=== PATIENT | male | born 1955 | race Caucasian/White ===

== ENCOUNTER 2021-03-27 13:57 | Emergency (ER) | payer BC ==
[~2021-03-27] VITALS: Ht 193 cm; Wt 117.9 kg
[~2021-03-27 13:57] MED LIST: ALLOPURINOL300 MG PO
[2021-03-27] MEDS ORDERED: VENTOLIN HFA18 GM INH (16:33)
== END 2021-03-27 17:07 | disposition home or self-care (01) ==
LOC: ED 13:57
DX: U07.1 COVID-19 (principal)
CPT/HCPCS: 71045; 80053; 85025; 94640; 99285-25

== ENCOUNTER 2021-03-29 12:05 | Inpatient (IN) | payer BC ==
[~2021-03-29] VITALS: Ht 193 cm; Wt 105.2 kg
[~2021-03-29 12:05] MED LIST changes: +VENTOLIN HFA18 GM INH
--- OUTSIDE RECORDS SUMMARY | 2021-03-29 12:12 | XMS ---
PreManage Notification: TIA DALEY Security Edi Specialist Events No recent Security Events currently on file CRITERIA MET - [facility] - 2 Visits in 30 Days CARE PROVIDERS There are no care providers on record at this time. Joseph has no Care Guidelines for this patient. [facility]12 MO.) [facility] NOTE: Visits indicate total known visits. ED/C VISIT TRACKING (12 MO.) 03/29/2021 12:06 [facility] COMPLAINT: - LOW O2, SHORTNESS OF BREATH 03/27/2021 13:58 [facility] [place] TYPE: Emergency COMPLAINT: - FLU SYMPTOMS INPATIENT VISIT TRACKING (12 MO.) No inpatient visits to display in this time frame [email or web address]
--- NOTE | 2021-03-29 14:30 | NUR ---
REPORT RECEIVED FROM ER NURSE AND PT. CARE RESUMED. PT. ARRIVED VIA STRETCHER AND TRANSFERRED TO BED INDEPENDENTLY. PLACED ON 6L NC WITH BUBBLER. PT. IS ALERT AND ORIENTED. DENIES PAIN. HE REPORTS DIZZINESS/ BEING LIGHTHEADED AT TIMES. 02 SAT IS 97% ON 6L. DISCUSSED SAFETY, POC AND PRONING. PT. LEFT RESTING WITH CALL LIGHT IN REACH.
--- NOTE | 2021-03-29 16:02 | NUR ---
02SAT WAS 98% AND TITRATED DOWN TO 5L NC. PT. AMBULATING WITH SBA TO BATHROOM AND DENIES BEING DIZZY
--- NOTE | 2021-03-29 18:02 | NUR ---
MED REC COMPLETE
--- NOTE | 2021-03-29 18:05 | NUR ---
PT. INSTRUCTED HOW TO USE I.S. AND DEMONSTRATED USE. PT. LEFT RESTING WITH CALL LIGHT IN REACH.
--- NOTE | 2021-03-29 19:10 | NUR ---
SHIFT REPORT RECEIVED FROM DAYSHIFT CONSTANTINO PETERSON IN HALLWAY. pt RESTING IN BED, EYES CLOSED. RR EVEN AND UNLABORED, 5LNC IN PLACE. NO DISTRESS NOTED, CALL LIGHT IN REACH.
--- NOTE | 2021-03-29 21:00 | NUR ---
pt REQUESTING SOMETHING TO HELP HIM SLEEP, DR GALINDO CALLED AND TELEPHONE ORDER READ BACK FOR 3MG PO MELATONIN DAILY AT BEDTIME PRN FOR INSOMNIA. THIS RN TO PLACE ORDERS.
--- NOTE | 2021-03-29 21:04 | NUR ---
IN TO GET VITALS, PROVIDED PT WITH ICE WATER, PT IS ASKING FOR SOME SLEEP AID, RN IS INFORMED AND WILL BE IN TO SEE THE PT SOON, EMPTIED URINAL, NO FURTHER NEEDS AT THIS TIME
--- NOTE | 2021-03-29 21:30 | NUR ---
ASSESSMENT COMPLETE, PRN PAIN AND COUGH MEDICATION GIVEN, SEE EMAR. VSS, pt ON 5LNC, CPOX IN PLACE. LUNG SOUNDS CLEAR/DIMINISHED WITH FINE CRACKLES IN LOWER LOBES. pt USING IS DIRECTED AND AGREES TO CONTINUE TO PRONE AND DEEP BREATH ABLE. NO DISTRESS NOTED, pt APPEARS TIRED OVERALL AND VERBALZES READINESS FOR BED. IV SITE WNL, FLUSHES EASILY. PRN MELATONIN ALSO PROVIDED FOR INSOMNIA, SEE EMAR. pt COMPLIANT WITH CARE, CALL LIGHT IN REACH AND FRESH WATER PROVIDED.
--- NOTE | 2021-03-29 23:41 | NUR ---
CALL LIGHT ANSWERED, pt REPORTS INABILITY TO SLEEP AND VERBALIZES FRUSTRATION REGARDING HOSPITALIZATION. pt IS COMPLIMENTARY TOWARDS STAFF, STATING, "YOU GUYS HAVE BEEN GREAT AND I KNOW YOU'RE DOING EVERYTHING YOU CAN". THERAPEUTIC COMMUNICATION PROVIDED ALONG WITH TEA. pt APPEARS MORE RELAXED AND DENIES ADDITIONAL NEEDS. CALL LIGHT REMAINS IN REACH.
--- NOTE | 2021-03-30 01:45 | NUR ---
CALL LIGHT ANSWERED, BED ALARMING. ISSUE RESOLVED. VSS, CPOX REMAINS IN PLACE. 5LNC WITH BUBBLER IN PLACE. ASSESSMENT COMPLETE, NO NEW CHANGES OR CONCERNS. CALL LIGHT IN REACH, PRN TYLENOL GIVEN FOR 3/10 GENERALIZED PAIN. FRESH WATER PROVIDED. BOARD UPDATED.
--- NOTE | 2021-03-30 03:58 | NUR ---
pt RESTING IN BED WITH EYES CLOSED, RR EVEN AND UNLABORED. NO DISTRESS NOTED. CPOX IN PLACE WITH 5LNC ON. SPO2 LOW 90'S, HR 70'S. CALL LIGHT REMAINS IN REACH.
--- NOTE | 2021-03-30 06:57 | NUR ---
CPOX ALARMING, SPO2 LOW 80'S. pt TITRATED TO 6LNC. pt REPORTS HE RECENTLY GOT OOB TO VOID THEN ATTEMPT TO PULL CURTAN UP. EDUCATION PROVIDED THAT pt IS ON BEDREST WITH EXCEPTION TO VOID. pt VERBALIZES UNDERSTANDING, REMAINS ON 6LNC, SUSTAINING AT 90-91%. CALL LIGHT IN REACH.
--- NOTE | 2021-03-30 07:20 | NUR ---
THIS RN RECEIVED REPORT FROM BRIANNE MEEKS. PT APPEARS TO BE RESTING SITTING UP AT THIS TIME WITH RESPIRATIONS NOTED AND IS ON CPOX.
--- NOTE | 2021-03-30 09:01 | EKG ---
[facility] [address] [place], [place] [address] Signed Sinus rhythm with occasional premature ventricular complexes Rightward axis Borderline ECG No previous ECGs available Confirmed by EBONY GALINDO MD ([id number]) on 03/30/2021 9:01:24 AM Electronically Signed By: EBONY GALINDO MD 03/30/21 0901 PATIENT NAME: TIA DALEY ALAN Electrocardiogram DATE OF : 57 PHYSICIAN: EBONY GALINDO MD REPORT #: [id number] REPORT IS CONFIDENTIAL AND NOT TO BE RELEASED WITHOUT AUTHORIZATION
--- NOTE | 2021-03-30 09:14 | NUR ---
PATIENT SITTING ON EDGE OF BED. BREAKFAST GIVEN. VITALS AND I&O'S CHARTED. FRESH WATER GIVEN. PATIENT REFUSED CHAIR. CALL LIGHT IN REACH. NO FURTHER NEEDS AT THIS TIME.
--- NOTE | 2021-03-30 09:15 | NUR ---
ELENA RN IN PTS ROOM TO GIVE PT HIS MORNIGN MEDS. THIS RN OFFERED PT SOME TYLEONL, PT STATES THAT WOULD BE GOOD FOR HIS GENERALIZED PAIN. PT STATES THAT HE FEELS OKAY JUST NOT SATIFISED THAT HE DID NOT SLEEP WELL LAST NIGHT. THIS RN ENOURAGED PT TO DISCUSS THIS WITH MD DUE TO HAVING ALREADY GOTTENT THE ORDER FOR MELATONIN.
--- NOTE | 2021-03-30 10:20 | NUR ---
THIS RN BACK IN PTS ROOM TO TURN OFF PTS IV PUMP AND SET UP ASSISTED PT TO THE CHAIR. PT TOLERATED WELL AND DOES APPEAR TO HAVE SOME SHORTNESS OF BREATH WHILE MOVING. PT ABLE TO RECOVER QUICKLY AFTER A SLIGHT DESAT TO 86% ON 6L. PT STATES THAT HE IS COMFORTABLE AND NEEDS NOTHING FURTHER AT THIS TIME.
--- NOTE | 2021-03-30 10:30 | NUR ---
this rn attempted to call pts daughter julien, unable to reach her, left a voicemail.
--- NOTE | 2021-03-30 11:45 | NUR ---
this rn called pts daughter to give hre an update. julien is a nurse here at the hospital, this rn attempted to answer all of her questions to the best of her abilty.
--- NOTE | 2021-03-30 13:00 | NUR ---
THIS RN IN PTS ROOM TO CHECK TO ENSURE PT WAS DOING WELL. PT STATES THAT HE IS FEELING BETTER THAN HE DID YESTERDAY. PT HAS NO CONCERNS AT THSI TIME, THIS RN PROVIDED PT WITH BOTTELD WATER, 7UP AND COUGH DROPS THAT HIS DAUGHTER BROUGHT FOR HIM. PT STATES THAT HE NEEDS NOTHING FURTHER.
--- NOTE | 2021-03-30 14:58 | NUR ---
PATIENT IND IN ROOM. PATIENT IN BED AT THIS TIME. SHOWER SUPPLIES SET UP IN SHOWER. NEW GOWN PROVIDED. PATIENT SAID HE WOULD CALL WHEN READY. VITALS AND I&O'S CHARTED. FRESH WATER GIVEN. CALL LIGHT IN REACH. NO FURTHER NEEDS AT THIS TIME.
--- NOTE | 2021-03-30 16:35 | NUR ---
this rn in to check on pt. pt appears to be resting at this time with respirations noted and call light within reach
--- NOTE | 2021-03-30 19:05 | NUR ---
SHIFT REPORT RECEIVED FROM DAYSHIFT CONSTANTINO WHITE IN HALLWAY. pt RESTING QUIETLY IN CHAIR, CPOX IN PLACE. SPO2 95% ON 4LNC, HR 76. NO DISTRESS NOTED, pt APPEARS COMFORTABLE. CALL LIGHT IN REACH.
--- NOTE | 2021-03-30 21:24 | NUR ---
ASSESSMENT COMPLETE, NO SCHEDULED MEDS (SEE EMAR). PRN TYLENOL GIVEN FOR 3/10 GENERALIZED ACHES AND PAINS, SEE EMAR. pt A/OX4, VSS. CPOX IN PLACE. pt ON 4-5LNC. NO DISTRESS NOTED, RR EVEN AND UNLABORED. pt STATES, "OH I FEEL MUCH BETTER THAN I DID LAST NIGHT". FRESH WATER AND JUICE PROVIDED, NO FURTHER NEEDS. CALL LIGHT IN REACH.
--- NOTE | 2021-03-30 22:00 | NUR ---
PER SHIFT REPORT, DAUGHTER JOSE WANG WANTED UPDATE. UPDATE PROVIDED, QUESTIONS ANSWERED. pt OKAY WITH THIS RN GIVING DAUGHTER UPDATE ON pt STATUS.
--- NOTE | 2021-03-31 00:05 | NUR ---
pt RESTING QUIETLY IN BED, EYES CLOSED AND RR EVEN AND UNLABORED. NO DISTRESS NOTED, CPOX IN PLACE. pt TITRATED DOWN TO 4LNC, SPO2 LOW 90'S AND HR UPPER 50'S. CALL LIGHT IN REACH.
--- NOTE | 2021-03-31 02:03 | NUR ---
CALL LIGHT ANSWERED, pt REPORTS BED SWEATY, GEAR MACHINE OPERATOR GENERALLa Nena PERALES IN ROOM TO COLLECT VS AND CHANGE LINENS. IN ROOM TO ASSESS, RT ROSAURA IN ROOM, PER RT, SPO2 IN 80'S WAS TITRATED BY RT ROSAURA. pt ADMITS HE WAS MOVING AROUND ROOM AND ATTEMPTING TO REMOVE WET LINENS. pt EDUCATED ON USE OF CALL LIGHT AND STAFF AVAILABILITY TO ASSIST. pt VERBALIZED UNDERSTANDING, NO DISTRESS NOTED. pt TALKING WITH RT AND INTERACTIVE WITH STAFF. BACK IN BED, WILL CONTINUE TO MONITOR. CALL LIGHT IN REACH.
--- NOTE | 2021-03-31 03:40 | NUR ---
IN TO O2 LETERS AND SPO2 READING FOR RN, NO FURTHER NEEDS AT THIS TIME
--- NOTE | 2021-03-31 05:59 | NUR ---
PRONING EDUCATION ALREADY IN ROOM, pt VERBALIZES UNDERSTANDING. DENIES NEEDS AT THIS TIME, CPOX IN PLACE. SPO2 89-91% ON 6LNC WITH BUBBLER. CALL LIGHT IN REACH.
--- NOTE | 2021-03-31 07:45 | NUR ---
this rn received report from dixon montes. pt sitting up to chair and appears to be resting comfortably with respirations noted, call light within reach and cpox in place.
--- NOTE | 2021-03-31 09:00 | NUR ---
this rn in pts room to give pt morning meds and do morning assessment. pt saturating at 88% on 10L. this rn to bump pt up to 11L and had pt use the IS. pt then desated further to 83% on 11L. this rn had pt get from chair to bed to prone. with movement pt sustained at 85% on 11L. this rn turned pts O2 up to 13L in order to attempt to increase sats. as pt settled into a side lying prone position pts o2 started to resolve to 88% on 13L this rn educated pt about proning and the need to deep breathe and used his diaphram to assit with opening his lungs. pt stated understanding and has call light within reach. this rn notified julien rn, charge nurse about pts change in status. she notified md and respiratory therapy.
--- NOTE | 2021-03-31 09:28 | NUR ---
UPDATED ON PT OXYGEN DEMAND INCREASE TO 13L HIGH FLOW AT THIS TIME. TO ORDER CT TO R/O PE, THEN PLAN TO TRANSFER TO CCU ON VAPOTHERM
--- NOTE | 2021-03-31 10:15 | NUR ---
THIS RN CALLED REPORT TO DAREN MEEKS FOR PT TRANSFER. ALL QUESTIONS ANSWERED TO THE BEST OF THIS RN'S ABILITY
--- NOTE | 2021-03-31 10:20 | NUR ---
THIS RN CALLED PTS DAUGHTER JOSE AND PTS LIFE PARTNER TO UPDATE THEM ON PTS CONDITION AND TRANSFER STATUS. BOTH HAD QUESTIONS AND THEY WERE ANSWERED TO THE BEST OF THIS RN'S ABILITY
--- NOTE | 2021-03-31 10:33 | NUR ---
PATIENT IN BED LAYING IN LEFT SIDE. VITALS AND I&O'S CHARTED. CALL LIGHT IN REACH. NO FURTHER NEEDS AT THIS TIME,.
--- NOTE | 2021-03-31 11:00 | NUR ---
PT APPEARS TO BE SIDE PRONING ON HIS LEFT SIDE AT THIS TIME. PT ON 13L HI-GA AND O2 SATS APPEAR TO BE 94-95%
--- NOTE | 2021-03-31 12:15 | NUR ---
THIS RN DOWN WITH PT AND SIENA FROM RT TO CT. PT TOELRATED WELL AND WAS PLACED ON NON-REBREATHER. PT SATS WERE ADEQUATE AND STAYED ABOVE 90% ON 12-15L OF O2.
--- NOTE | 2021-03-31 12:45 | NUR ---
PT TRANSFERRED TO ROOM 130 IN CCU AT THIS TIME VIA BED, RN ACCOMPANIED WITH SIENA FROM RT.
--- NOTE | 2021-03-31 13:00 | NUR ---
PATIENT ARRIVED TRANSFERED FROM THE MEDICAL UNIT AFTER HAVING A CT CHEST COMPLETED. PATIENT RESTING IN BED AT THIS TIME. BEDDING WAS CHANGED WHILE CT WAS COMPLETED. RESPIRATORY THERAPY AND CHRISTOPHER RN AT PATIENTS BEDSIDE. REPORT RECIEVED FROM CHRISTOPHER MEEKS. PATIENT CURRENTLY ON 15L NON-REBREATHER WITH SPO2 92%. SIENA RT WILL SET UP VAPOTHERM PER MD BOO ORDER. THIS RN WILL BE AT THE BEDSIDE TO ADMIT PATIENT IN AND ORIENT TO HIS NEW ROOM. WILL CONTTINUE TO CLOSELY MONITOR.
--- NOTE | 2021-03-31 15:11 | NUR ---
RESPIRATORY THERAPY IN TO PLACE PATIENT ONTO VAPOTHERM. THIS RN WILL BE IN AFTER TO ASSIST PATIENT WITH PRONING. WILL CONTINUE TO CLOSELY MONITOR.
--- NOTE | 2021-03-31 16:30 | NUR ---
THIS RN IN TO ASSIST PATIENT ONTO HIS BELLY TO LAY PRONE. PATIENT IS VERY WILLING TO TRY ANYTHING TO GET BETTER. PATIENT BECAME TEARFUL WHEN TALKING WITH STAFF AND STATED "I DONT WANT TO ". REASSURED PATIENT THE STAFF ARE HERE AND ARE GOING TO DO ALL BE CAN TO HELP HIM GET BETTER. PATIENT VERY THANKFUL FOR WHAT STAFF ARE DOING FOR HIM. PATIENT WILLING TO TRY AND LAY PRONE UNTIL HIS DINENR COMES. EDUCATED PATIENT HOW TO CALL AND MOVE IF HE NEEDS TO REPOSITION SOONER. CALL LIGHT IN REACH. WILL CONTINUE TO CLOSELY MONTIOR.
--- NOTE | 2021-03-31 18:45 | NUR ---
THIS RN IN WITH PATIENT TO ASSIST UP TO THE CHAIR SO HE COULD EAT DINNER. PATIENT TOELRATED WELL. PATIENT VISITING WITH THIS RN. URINAL EMPTIED. PATIENT OKAYED STAFF TO UPDATE PATIENTS DAUGHTER JOSE. PATIENT WAS ABLE TO PRONE FOR APPROX 1 HOUR AND THEN LAID ON HIS SIDE FOR 1 HOUR PRIOR TO DINNER. PATIENTS VITALS STABLE. PATIENT ON 30L AND 80%. WILL CONTINUE TO CLOSELY MONITOR.
--- NOTE | 2021-03-31 19:39 | NUR ---
Report recieved care of patient assumed at this time. PT up in chair spo2 = 91% on vapotherm at this time.
--- NOTE | 2021-03-31 20:12 | NUR ---
assessment completed. pt sitting up in chair. spo2= 91 percent on vapotherm. discussed plan of care. pt states he feels better when proning and will attempt to prone as much as possible tonight. Pt shaving and doing pm cares in recliner at this time. call light within reach. will continue to monitor.
--- NOTE | 2021-03-31 21:06 | NUR ---
Pt up from recliner and into prone position in bed. pillows at chest and hips. pt states he will try to remain in this position as long as tolerated. spo2= 98% at this time.
--- NOTE | 2021-03-31 21:43 | NUR ---
PT NOW LAYING ON LEFT SIDE. CALL LIGHT WITHIN REACH. WILL CONTINUE TO MONITOR.
--- NOTE | 2021-03-31 23:24 | NUR ---
pt up in chair spo2 = 85 percent on vapotherm 30l/80% FIO2. pt states he feels short of breath. prn breathing tx given at this time and vapotherm settings increased to 30l/ 90%fio2. this rn remains at bedside.
--- NOTE | 2021-03-31 23:38 | NUR ---
PT STATES HE FEELS BETTER AFTER BREATHING TREATMENT, VAPOTHERM TURNED BACK DOWN TO 30L/80% FIO2. SPO2 =95% AT THIS TIME. FINE CRACKLES NOTED IN BILATERAL LUNG BASES. PT REMAINS UP IN RECLINER. CALL LIGHT WITHIN REACH. WILL CONTINUE TO MONITOR.
--- NOTE | 2021-04-01 02:45 | NUR ---
rn eyal in room with patient to assist with repostioning in chair. spo2 = 96 percent at this time. breathing even and unlabored. call light within reach. will continue to monitor.
--- NOTE | 2021-04-01 04:23 | NUR ---
assessment completed and blood drawn and sent to lab. pt states he slept for a few hours. Pt sitting up in bed drinking coffee and watching the news. plan to turn onto side in the next hours. SPO2 94-96 percent on vapotherm. call light within reach. no further needs at this time.
--- NOTE | 2021-04-01 06:26 | NUR ---
PT SATURATIONS DROPPED INTO THE MID 80S. PT NOW TURNED ON TO LEFT SIDE, SPO2 = 100 PERCENT ON 30L /80%. CALL LIGHT WITHIN REACH. WILL CONTINUE TO MONITOR.
--- NOTE | 2021-04-01 07:25 | NUR ---
REPORT RECEIVED FROM NIGHTSHIFT RN. WILL CONTINUE PLAN OF CARE.
--- NOTE | 2021-04-01 08:30 | NUR ---
THIS RN IN TO ASSESS PT, PT LAYING IN BED ALERT AND ORIENTED X4. PT ON THE VAPOTHERM AT 30LPM 80% FIO2. PT STATES HE IS CURRENTLY HAVING GENERAL BODY ACHES 4/10 AND SOME COUGHING. PRN TYLENOL AND TESSALON PERLES ADMINISTERED ALONG WITH SCHEDULED MEDICATION (SEE MAR). IV MEDICATION NOW INFUSING ORDERED. PT ASSESSED AT THIS TIME AND VITALS TAKEN. FINE CRACKLES NOTED IN BASES BILATERALLY. PT ENCOURAGED AND ABLE TO USE I.S 3X AT THIS TIME WHILE SITTING UP IN BED. PT NOW EATING HIS BREAKFAST. PT REPORTS NO FURTHER NEEDS AT THIS TIME WHEN ASKED. CALL LIGHT IN REACH, BED IN LOWEST POSITION, IVF INFUSING, VAPOTHERM LEFT AT CURRENT SETTINGS, SPO2 AT 94%, WILL CONTINUE PLAN OF CARE.
--- NOTE | 2021-04-01 09:45 | NUR ---
RESPONDED TO PT CALL LIGHT PT STATED HE NEEDED TO HAVE A BM. THIS RN IN TO ASSIST PT GET ONTO THE BEDSIDE COMMODE. PT REQUIRED ASSISTANCE ONLY WITH WIRE MANAGEMENT AND WAS ABLE TO GET ONTO THE BEDSIDE COMMODE. VAPOTHERM FIO2 INC TO 100% WHILE PT WAS ACTIVE, SPO2 MAINTAINING IN UPPER 80% LOWER 90%. PT DENIED LIGHTHEADEDNESS BUT DID STATE HE FELT HE HAD LABORED BREATHING DURING THIS TIME. PT ABLE TO VOID AND HAVE A BM AND GOT BACK INTO BED IN THE PRONE POSITION. PT FIO2 DECREASED BACK TO 80% AND THEN 70% HIS SPO2 WAS IN THE 98-99% RANGE. DR. GALINDO THEN IN TO ASSESS PT AND UPDATE ON POC. PT TURNED DOWN TO 60% FIO2 ON THE VAPOTHERM PER MD ORDERS. PT DENIES ANY PAIN AT THIS TIME WHEN ASKED. PT NOW PRONING IN BED, VAPOTHERM AT 30LPM, FIO2 AT 60%, SPO2 MAINTAINING AT 96%. PT REPORTS NO FURTHER NEEDS AT THIS TIME WHEN ASKED, WILL CONTINUE PLAN OF CARE. CALL LIGHT IN REACH, BED IN LOWEST POSITION.
--- NOTE | 2021-04-01 10:45 | NUR ---
RESPONDED TO PT CALL LIGHT. PT STATED HE WANTED TO REPOSITION OVER TO THE LEFT SIDE. PT ASSISTED WITH REMOVING EXTRA PILLOWS, PT NOW LAYING ON HIS LEFT SIDE. PT STILL ON VAPOTHERM AT PREVIOUS SETTINGS AT 30LPM FIO2 AT 60%, SPO2 AT 94%. PT REPORTS NO FURTHER NEEDS AT THIS TIME WHEN ASKED, WILL CONTINUE PLAN OF CARE. CALL LIGHT IN REACH, BED IN LOWEST POSITION.
--- NOTE | 2021-04-01 12:42 | NUR ---
LUNCH ARRIVED, DELIVERED TO PT BY THIS RN. PT UP TO CHAIR. DENIES SHORTNESS OF BREATH. O2 SATURATIONS 87-89% ON VAPOTHERM SETTINGS OF 60% FIO2 AT 30LPM. FIO2 INCREASED TO 70% AND O2 SATURATIONS CLIMB TO 90-91%. PT HAS VOIDED 450ML CLEAR YELLOW URINE INTO URINAL. PT EATING LUNCH UP TO CHAIR. VITAL SIGNS STABLE. NO ADDITIONAL REQUESTS OR COMPLAINTS. CALL LIGHT WITHIN REACH.
--- NOTE | 2021-04-01 13:34 | NUR ---
PTS FAMILY MEMBER, CLAUDE, CALLED FOR UPDATED. UPDATED ON PTS OXYGEN SATURATION LEVEL AND ACTIVITIES OF THE DAY. MESSAGE PASSED TO PTS PRIMARY NURSE TO CALL CLAUDE WELL WITH ADDITIONAL UPDATES.
--- NOTE | 2021-04-01 13:35 | NUR ---
THIS RN IN TO ASSESS PT. PT STANDING UP AT THE SIDE OF THE BED VOIDING INTO URINAL AT THIS TIME. PT AWAKE AND ORIENTED AT THIS TIME ON VAPOTHERM AT 30LPM 70% FIO2. PT STATED HE WANTED TO PRONE WHEN HE GOT BACK INTO THE BED. PT ASSISTED IN FINDING A COMFORTABLE POSITION WHEN PRONING. PT NOW LAYING IN BED PRONING, SPO2 AT 98-99%. FIO2 ON VAPOTHERM DECREASED TO 50% AT THIS TIME. PT SP02 MAINTAINING AT 94-96% WHILE PRONED. PT REPORTS NO FURTHER NEEDS WHEN ASKED, WATER CUPS REFILLED AT THIS TIME. CALL LIGHT IN REACH, BED IN LOWEST POSITION, WILL CONTINUE PLAN OF CARE.
--- NOTE | 2021-04-01 16:40 | NUR ---
THIS RN IN TO ASSESS PT. PT GETTING BACK INTO BED AND HAD JUST FINISHED VOIDING INTO THE URINAL. PT NOW LAYING BACK IN BED ON HIS LEFT SIDE, VAPOTHERM ON AT 30LPM, 50% FIO2. SPO2 NOTED TO BE AT 98-100%, FIO2 DECREASED TO 40%. PT ASSESSED AT THIS TIME AND VITALS TAKEN. PT REPORTS HE STILL HAS SOME SHORTNESS OF BREATH WITH ACTIVITY BUT DENIES LIGHTHEADEDNESS. PT REPORTS NO FURTHER NEEDS WHEN ASKED AT THIS TIME, WILL CONTINUE PLAN OF CARE. CALL LIGHT IN REACH, BED IN LOWEST POSITION.
--- NOTE | 2021-04-01 17:21 | NUR ---
DINNER BROUGHT TO PT AT THIS TIME. PT AWAKE AND ALERT LAYING IN BED ON THE VAPOTHERM AT 30LPM 40% FIO2. PT REPOSITIONED UP TO A SITTING POSITION IN BED TO EAT DINNER. FIO2 ON VAPOTHERM INCREASED TO 50% AT THIS TIME TO MAINTAIN SATURATIONS ABOVE 90% WHILE EATING. PT REPORTS NO FURTHER NEEDS AT THIS TIME AND IS NOW EATING DINNER, SPO2 AT 95%, WILL CONTINUE PLAN OF CARE. CALL LIGHT IN REACH, BED IN LOWEST POSITION.
--- NOTE | 2021-04-01 19:12 | NUR ---
Update from Rn. Pt remains on vapotherm. Will fu with family tomorrow.
--- NOTE | 2021-04-01 19:22 | NUR ---
PATIENT UP TO CHAIR BY HIMSELF ON VAPOTHERM AT 30 L AND 50%. SP02 STAYING 88%, THEREFORE INCREASED TO 60%. PT'S PERSONAL BELONGINGS BROUGHT CLOSER TO HIM.
--- NOTE | 2021-04-01 19:32 | NUR ---
Report recieved, care of mei assumed at this time. pt currently n vapotherm and up in chair. spo2 =90%. will closely monitor.
--- NOTE | 2021-04-01 20:24 | NUR ---
IN ROOM FOR ASSESSMENT. PT UP IN CHAIR. FINE CRACKLES NOTED UP TO THE MIDDLE OF LUNGS POSTERIORLY. PLAN OF CARE ESTABLISHED AT THIS TIME. PT NOW IN BED, IN LEFT SIDE LAYING POSITION. VAPOTHERM AT 30L/ 60% FIO2. CALL LIGHT WITHIN REACH. DENIES FURTHER NEEDS AT THIS TIME.
--- NOTE | 2021-04-01 22:00 | NUR ---
PT UP TO CHAIR AT THIS TIME. SPO2 = 93%, TOLERATED EXERTION WELL. CALL LIGHT WITHIN REACH. NO FURTHER NEEDS AT THIS TIME.
--- NOTE | 2021-04-01 23:30 | NUR ---
PT ASLEEP IN RECLINCER. SPO2= 95% ON VAPOTHERM. CALL LIGHT WITHIN REACH. NO ASSESSED NEEDS AT THIS TIME.
--- NOTE | 2021-04-02 01:21 | NUR ---
patient slept through assessment. awoke to voice. spo2 =95%. pt remains asleep in chair. vapotherm in place. call light within reach. no assessed needs at this time.
--- NOTE | 2021-04-02 01:42 | NUR ---
Pt moved to bed at this time. took vapotherm off for a break. spo2 = 78 on room air. recovered after a minute of resting on vapotherm. spo2 =91% on 30L /50% FIO2. pt now laying on right side. call light within reach. will continue to monitor.
--- NOTE | 2021-04-02 04:24 | NUR ---
assessment completed. pt awake sitting up in bed. used urinal and repositioned in bed. given prn medication for cough (see emar). blood collected and sent to lab, well tolerated by patient. spo2 = 92% on vapotherm 30l/ 50% Call light within reach. denies further needs at this time.
--- NOTE | 2021-04-02 05:45 | NUR ---
pt now in prone positon. SPO2 = 93 % on vapotherm. will continue to monitor.
--- NOTE | 2021-04-02 08:10 | NUR ---
BREAKFAST ARRIVED. DELIVERED TO PT. PT UP TO CHAIR. RT TO BEDSIDE AND WEANS PT TO 45% FIO2 AT 35LPM. PT TOLERATING DECREASED FIO2 WITH OXYGEN SATURATIONS ABOVE 90%. PT REMAINS UP TO CHAIR, EATING BREAKFAST. NO ADDITIONAL REQUESTS OR COMPLAINTS. CALL LIGHT WITHIN REACH. PTS PRIMARY RN UPDATED.
--- NOTE | 2021-04-02 10:10 | NUR ---
PATIENT IN PRONE POSITION AT THIS TIME. HELPED HIM GET COMFORTABLE. RT IN ROOM AND SWITCHED PT TO HIGH FLOW NASAL CANNULA AT 12 L. SP02 IS CURRENTLY 98-99%. PT GIVEN PRN MOTRIN. CALL LIGHT WITHIN REACH.
--- NOTE | 2021-04-02 11:23 | NUR ---
PATIENT CONTINUES TO REST PRONED AT THIS TIME. SP02 HAS BEEN STAYING IN THE UPPER 90s ON 12L HIGH FLOW.
--- NOTE | 2021-04-02 11:39 | NUR ---
PATIENT USES CALL LIGHT AND STATES HE WANTS TO ORDER LUNCH. PATIENT PRONED FOR AN HOUR, LAID ON RIGHT SIDE FOR A HALF HOUR, AN LEFT SIDE. LUNCH ORDERED. PT ON [address] CASTILLO IN ROOM AT THIS TIME DISCUSSING WITH PLAN OF CARE.
--- NOTE | 2021-04-02 17:52 | NUR ---
Spoke with Esteban. He lives in a [place] style home in [place] with out steps with his girlfriend. He is a forklift truck mechanic. He does not use any DME. Discussed needs and he denies and states his girlfriend raul assist him. Discussed possibility of need for 02 on dc and he would like [place] if 02 is required. He denies other needs and plans on dc to home on discharge.
--- NOTE | 2021-04-02 18:46 | NUR ---
PATIENT TRANSFERRED TO MED/SURG. PT REMAINS ON 10 L HIGH FLOW. ALL BELONGINGS TAKEN WITH PATIENT. PATIENT TRANSFERRED TO 113 IN BED. PT IN [employer] AND EXCITED ABOUT THE DOWNGRADE TO THE MEDICAL FLOOR, HE FEELS THIS IS A STEP IN THE RIGHT DIRECTION.
--- NOTE | 2021-04-02 18:58 | NUR ---
PT ARRIVED TO THE FLOOR VIA BED. PT STATES THAT HE NEEDS NOTHING AT THIS TIME AND IS DOING WELL.
--- NOTE | 2021-04-02 19:05 | NUR ---
RECEIVED REPORT, TALKED TO PT FROM DOORWAY AND HE DENIES NEEDS AT THIS TIME. CALL LIGHT IS CLOSE.
--- NOTE | 2021-04-02 20:21 | NUR ---
IN ROOM TO ASSESS PT. HE DENIES NEED FOR TYLENOL NOW BUT WOULD LIKE SOME FOR BACK/GENERALIZED 4/10 PAIN BEFORE GOING TO BED. PT DENIES SOB, HE DOES HAVE AN OCCASIONAL COUGH. PT CPOX IN PLACE AND PT IS AT 91% ON HIGH FLOW NC. PROVIDED FRESH ICEWATER TO PT AND HE DENIES FURTHER NEEDS AT THIS TIME. CALL LIGHT IS CLOSE.
--- NOTE | 2021-04-02 21:19 | NUR ---
IN ROOM TO ADMINISTER TYLENOL FOR GENERAL/BACK PAIN. BLANKET PLACED OVER CHAIR FOR PT AND EMPTIED URINAL/BSC. PT HAD MED BM SOFT. PT DENIES FURTHER NEEDS AT THIS TIME. CALL LIGHT IS CLOSE.
--- NOTE | 2021-04-02 23:03 | NUR ---
ASKED RT ROSAURA FOR A EXTENDED HIGH FLOW LINE. HE SET EXTENSION UP AND PT'S O2 SAT IS AT 95% AT THIS TIME ON CPOX. PT IS RESTING WITH EYES CLOSED, RR IS EVEN AND NONLABORED. CALL LIGHT IS CLOSE.
--- NOTE | 2021-04-03 01:15 | NUR ---
CPOX WAS BEEPING, PT WAS JUST USING THE URINAL AND THE PROBE WAS NOT READING WELL. PT REQUESTS COFFEE AND DENIES FURTHER NEEDS. CALL LIGHT IS CLOSE, WILL MAKE COFFEE AND RETURN.
--- NOTE | 2021-04-03 01:30 | NUR ---
BLACK COFFEE PROVIDED.
--- NOTE | 2021-04-03 01:56 | NUR ---
IN ROOM TO ASSESS PT. HE DENIES PAIN AND SOB, PT STATES EVEN WHEN HE IS UP HAS HAS NO SOB. HE STATES BLOWING HIS NOSE HELPED DECREASED THIS SOB THAT HE HAD LAST NIGHT. PT DENIES NEEDS AT THIS TIME. CALL LIGHT IS CLOSE.
--- NOTE | 2021-04-03 04:30 | NUR ---
PT IS AWAKE IN BED, COFFEE PROVIDED. HE DENIES FURTHER NEEDS. CALL LIGHT IS CLOSE.
--- NOTE | 2021-04-03 06:25 | NUR ---
JERICA RUSTIC FENCE BUILDER NOTIFIED THIS RN THAT PT GOT UP TO BATHROOM AND THEN THE CHAIR AND O2 SAT DROPPED TO 79%, IT EVENTUALLY CAME BACK UP TO 85% BY THE TIME THIS RN ENTERED THE ROOM THEN TO 90%. PT DROPPED AGAIN AFTER COUGHING TO MID 80"S. INCREASED O2 TO 12LNC AND HIS IS MAINTAINING 90% AT THIS TIME. ADMINISTERED TYLENOL FOR A 5/10 HEADACHE. PT DENIES FURTHER NEEDS AT THIS TIME CALL LIGHT IS CLOSE.
--- NOTE | 2021-04-03 07:30 | NUR ---
REPORT RECEIVED FROM MICKEY MEEKS. PT UP TO CHAIR. PT REPORTS HE "FEELS LIKE CRAP." PT REPORTS IT WAS A "BAD NIGHT" AND STATES HE IS HAVING A HARD TIME WITH FEELINGS OF MAILASE. OXGYEN SATURATIONS 88-90% ON 12L O2 BY NC. PT REPORTS 2/10 HEADACHE THAT IS "GETTING BETTER." PT REPORTS HE WAS ABLE TO PRONE "A LITTLE BIT" LAST NIGHT BUT "HAD TROUBLE WITH THAT BED." PT STATES HE WOULD LIKE TO EAT BREAKFAST AND THEN GET BACK TO BED TO PRONE. PT DENIES ADDITIONAL REQUESTS OR COMPLAINTS. CALL SUNDEEP VIRGEN.
--- NOTE | 2021-04-03 08:21 | NUR ---
BROUGHT PATIENT IN HIS BREAKFAST. WHITE BOARD UPDATED. PATIENT SITTING UP IN CHAIR. HE STATED HE DOES NOT NEED ANYTHING ELSE AT THIS TIME. CALL LIGHT IN REACH.
--- NOTE | 2021-04-03 09:01 | NUR ---
PATIENT UP TO BATHROOM TO VOID, TOLERATED ACTIVITY WELL, ATE 100% OF BREAKFAST. PATIENT BACK TO BED AND PRONING ON STOMACH.
--- NOTE | 2021-04-03 09:14 | NUR ---
MORNING ASSESSMENT AND MEDICATION DUE. THIS RN TO ROOM. PT UP IN ROOM WITH EVA RN, TO RESTROOM. VOIDS 375ML YELLOW URINE. PT BACK TO BED WITH STAND BY ASSIST. PT CONTINUES TO REPORTS MALIASE WITH 4/10 BODY ACHES. PT STATES HE IS GENERALLY "NOT FEELING GOOD." PT STATES HE HAD A ROUGH NIGHT WITH HARDLY ANY SLEEP. PT DENIES NAUSEA. IVs ASSESSED, WNL. FLUSHED PER PROTCOL. ALCOHOL CAPS APPLIED. NO S/S OF PHELBITIS NOTED. O2 SATURATIONS 86-88% OIN 11L WITH ACTIVITY. PT BACK TO BED WITH STAND BY ASSIST. ASSESSMENT DONE. LUNG SOUNDS CLEAR. PT ASSISTED INTO PRONING POSITION AND OXYGEN SATURATIONS CLIMB TO 96% ON 11L O2 BY NC. PT REPORTS OCCATIONAL DRY COUGH. DYSPNEA ON EXERTION NOTED. PT REPORTS HE IS "TOO TIRED" TO USE I.S. AT THIS TIME. PT REMAINS IN PRONING POSITION, SUPPORTED WITH PILLOWS. PT DENIES ADDITIONAL REQUESTS OR COMPLAINTS STATING "I JUST REALLY WANT TO REST." NAP SIGN PLACED ON PTS DOOR. BED RAILS UP. CALL LIGHT WITHIN REACH.
--- NOTE | 2021-04-03 10:00 | NUR ---
No change in plan for dc.
--- NOTE | 2021-04-03 10:07 | NUR ---
CALL RETURNED TO PTS DAUGHTER, JOSE. JOSE UPDATED, JOSE STATES HER QUESITONS HAVE BEEN ANSWERED.
--- NOTE | 2021-04-03 10:20 | NUR ---
THIS RN TO ROOM TO CHECK ON PT. PT RESTING ON RIGHT SIDE WITH EYES CLOSED. RESPRIATIONS EVEN AND UNALBORED. O2 SATURATTION 96% ON 11L O2 BY NC. PT ALLOWED TO REST UNDESTURBED. BED RAILS UP. CALL LIGHT WITHIN REACH.
--- NOTE | 2021-04-03 11:43 | NUR ---
THIS RN TO ROOM TO CHECK ON PT. PT FEELING DISCOURAGED ABOUT TIME IT IS TAKING TO RECOVER. 20MINUTE DISCUSSION HELD WITH PT REGARDING RECOVERY PROCESS, OXYGEN USE, PLAN OF CARE, AND EXPECTATIONS. PT VERBALIZES UNDERSTANDING AND STATES HE FEELS "A LOT BETTER" WITH ANSWERS TO HIS QUESTIONS. PT REMAINS UP TO CHAIR. PT STATES THE DOCTOR WAS HERE AND SUGGESTED TIME UP TO CHAIR. OXYGEN SATURATION 88-91% ON 11L O2 BY NC. PT DEMONSTRATES USE OF I.S. REACHING 2000ML X4. IC EWATER REFILLED. CALL LIGHT WTHIN REACH. PT DENIES ADDITIONAL REQUESTS OR COMPLAINTS.
--- NOTE | 2021-04-03 12:45 | NUR ---
PATIENT UP TO SHOWER, THIS BILINGUAL SPEECH THERAPIST AND MO MELVIN IN ROOM TO MONITOR. PATIENT DID WELL IN SHOWER BY SELF. LINENS CHANGED, PATINET BACK TO CHAIR, WARM BLANKET AND ICE WATER PROVIDED. SIDE TABLE TIDIED. CALL LIGHT AND PERSONAL ITEMS CLOSE BY, NO OTHER NEEDS AT THIS TIME
--- NOTE | 2021-04-03 12:50 | NUR ---
PT FINISHED WITH LUNCH. ABLE TO EAT FULL ENSURE MILKSHAKE WITH ADDED ICE CREAM. PT REPORTS APPITTIE IS IMPROVING. PT REPORTS HE IS READY FOR A SHOWER. OXYGEN INCREASED TO 16L O2 BY HIGH FLOW NC FOR SHOWER/ACTVITY PT IS 88-91% ON 11L O2 AT REST. STAND BY ASSIST UP TO SHOWER, IV LINE COVERED. LUNA AND CANDI, PHP MYSQL WEB DEVELOPER'S IN ROOM WITH PT FOR STAND BY ASSIST WITH SHOWER. LINENS CHANGED. PHP MYSQL WEB DEVELOPER'S REMAIN AT BEDSIDE. PT DEMONSTRATES USE OF CALL LIGHT. NO ADDITIONAL REQUESTS OR COMPLAINTS.
--- NOTE | 2021-04-03 13:44 | NUR ---
AFTERNOON ASSESSMENT DUE. PT FINISHED WITH SHOWER. PT UP TO CHAIR. OXYGEN SATURATIONS 92% ON 16L AFTER ACTIVITY. PT REPORTS INDEPENDANT I.S. X5 AND SATTES HE IS REACHIGN 2000ML. PT REPORTS 3/10 BODY ACHES AND WHEN ASKED IF HE NEEDS PAIN MEDICATION STATES "I WOULDN'T TURN IT DOWN." SEE MAR FOR MEDICATION GIVEN. IV SITES REMAIN WNL, NO S/S OF PHELBITIS NOTED. PT ALERT AND ORIENTED, NEURO CHECK WNL. LUNG SOUNDS CLEAR BUT FOR SMALL AMOUNT OF FINE CRACKELS IN LLL. PT REPORTS HIS BREATHING DURING SHOWERING "FELT OKAY." STAND BY ASSIST BACK TO BED AND INTO PRONE POSITION. OXGYEN SATURATIONS CLIMB TO 92-95% ON 11L O2 BY NC WITH PRONING. PT REPORST FEELING "BETTER ALREADY." NO ADDITIONAL REQUESTS OR COMPLAINTS. CALL LIGHT WITHIN REACH. BED RAILS UP.
--- NOTE | 2021-04-03 15:20 | NUR ---
THIS RN TO ROOM TO CHECK ON PT. PT RESTING ON LEFT SIDE WITH EYES CLOSED. O2 SATURATIONS 90% ON 11L O2 BY NC. RESPRIATIONS EVEN AND UNALBORED. PT ALLOWED TO REST. BED RAILS UP. CALL LIGHT WITHIN REACH.
--- NOTE | 2021-04-03 16:35 | NUR ---
THIS RN TO ROOM TO CHECK ON PT. PT CONTINUES RESTING ON LEFT SIDE WITH EYES CLOSED. RESPIRATIONS EVEN AND UNALBORED. O2 SATURATION 94% ON 11L O2 BY NC. BED RAILS UP. CALL LIGHT WITHIN REACH. PT ALLOWED TO REST.
--- NOTE | 2021-04-03 16:49 | NUR ---
PT HERE FOR COVID RELATED PNEUMONIA. STAND BY ASSIST UP IN ROOM TO CHAIR AND FOR SHOWER THIS SHIFT. PT TOELRATING REGULAR DIET WITH GOOD APPITITE. PT REMAINS ON 11L O2 BY HIGH FLOW NASAL CANULA, INCREASED TO 16 DURING HIGH ACTIVITY LEVELS TO 16L. PT TOLERATING WITH OXYGEN SATURATIONS 88-95%. PT REPORT BODY ACHES THIS SHIFT, PRN PAIN MEDICATIONS GIVEN. PT DENIES NASUEA. I.S. USE IMPROVED, PT NOW REACHING 2000ML. PT PARTICIPATING IN PRONING PROTOCOLS. CONTINIOUS PULSE OX REMAINS IN PLACE. PT VOIDING QUANTITY SUFFICIENT. PT USES CALL LIGHT APPROPRIATLY.
--- NOTE | 2021-04-03 17:45 | NUR ---
THIS RN TO ROOM TO CHECK ON PT. PT SITTING UP IN BED TALKING WITH FAMILY ON PHONE. PT REPORTS "I FEEL SO MUCH BETTER NOW." O2 AT 88-91% ON 11L O2 BY NC. STAND BY ASSIST UP TO CHAIR FOR DINNER. WATER REFILLED. PT DENIES PAIN AND NAUSEA AND REPORTS GOOD APPITITE. PT REPORTS HE HAD A SMALL BLOODY NOSE WHILE PRONING. 2CM CIRCUMFRENTIAL SPOT OF BLOOD NOTED ON PTS BLANKET. ADDITIONAL STERIL WATER ADDED TO HIGH FLOW NASAL CANULA HUMIDIFICATION. PT REMAINS UP TO CHAIR, OXYGEN SATURATION 87-90% WHILE EATING ON 11L O2 BY MD. PT DENIES ADDITIONAL REQUESTS OR COMPLAINTS. PT TALKING TO FAMILY ON FACE TIME. ABLE TO CARRY ON CONVERSATION WITH OUT STOPING TO CATCH HIS BREATH. CALL LIGHT WITHIN REACH.
--- NOTE | 2021-04-03 18:40 | NUR ---
THIS RN TO ROOM TO CHECK ON PT. PT REMAINS UP TO CHAIR. O2 SATURATIONS 90% ON 11L O2 BY NC. PT REPORTS DINNER "WAS REALLY GOOD." PT DENIES ADDITIONAL REQUESTS OR COMPLAINTS. CALL LIGHT WITHIN REACH.
--- NOTE | 2021-04-03 19:00 | NUR ---
RECEIVED REPORT, PT IS SITTING IN CHAIR. CPOX READS 91% ON 11LNC. HE DENIES NEEDS AT THIS TIME. CALL LIGHT IS CLOSE.
--- NOTE | 2021-04-03 19:08 | NUR ---
REPORT GIVEN TO CONSTANTINO AREVALO, WHO IS ASSUMING CARE OF PT.
--- NOTE | 2021-04-03 21:20 | NUR ---
PT IS RESTING WITH EYES CLOSED, RR IS EVEN AND NONLABORED. CALL LIGHT IS CLOSE. CPOX WNL.
--- NOTE | 2021-04-03 23:00 | NUR ---
IN TO GET VITALS FOR RN, FRESH ICE WATER PROVIDED, PT HAS NOT VOIDED AT THIS TIME, PT UP TO THE CHAIR, NO FURTHER NEEDS
--- NOTE | 2021-04-03 23:25 | NUR ---
IN ROOM TO ASSESS PT AND ADMINISTER TYLENOL FOR 4/10 GENERAL ACHES AND PAINS. PT DENIES SOB. HIS O2 ON CPOX HAS BEEN IN THE LOW 90'S WHILE SLEEPING ON HIS SIDE. NOW THAT HE IS AWAKE IN CHAIR HIS O2 SAT STARTED TO DROP TO LOW 83% AFTER GETTING UP TO CHAIR. WITH SOME DEEP BREATHS PT'S O2 RECOVERED TO 90% ON 12L NC. PT DENIES FURTHER NEEDS AT THIS TIME. CALL LIGHT IS CLOSE.
--- NOTE | 2021-04-04 01:22 | NUR ---
PT IS RESTING WITH EYES CLOSED, RR IS EVEN AND NONLABORED. CALL LIGHT IS CLOSE. PT IS LAYING ON R SIDE CPOX READS 93% ON 12L NC.
--- NOTE | 2021-04-04 02:25 | NUR ---
PT IS AWAKE IN THE CHAIR. HE DENIES NEEDS AT THIS TIME, CPOX READS 92%. CALL LIGHT IS CLOSE.
--- NOTE | 2021-04-04 04:36 | NUR ---
PT IS RESTING WITH EYES CLOSED, RR IS EVEN AND NONLABORED. CALL LIGHT IS CLOSE.
--- NOTE | 2021-04-04 06:50 | NUR ---
IN ROOM TO GET VS AND I&O'S. PT DENIES PAIN AND SOB AT THIS TIME. HE IS SITTING UP IN BED AND CPOX READ 87% INCREASED O2 TO 13LNC AND HIS O2 INCREASED TO 89%. TALKED W PT ABOUT DCING THE IV IN HIS HAND SINCE IT HAS BEEN IN SINCE ADMISSION. PT STATES HE WOULD RATHER TAKE AC IV OUT IT IS BOTHERSOME. ADVISED PT THAT WE WILL LEAVE IT FOR NOW AND CHECK WITH DR. PT DENIES FURTHER NEEDS AT THIS TIME. CALL LIGHT IS CLOSE.
--- NOTE | 2021-04-04 07:13 | NUR ---
REPORT RECEIVED FROM CONSTANTINO AREVALO. PT UP TO CHAIR. PULSE OX ALARMING, O2 SATURATION 78% ON 12L O2 BY NC. PT STATES HE WAS JUST UP TO USE THE URINAL. THIS RN INTO ROOM. O2 SATURATION CLIMBS TO 82% WITH 5 MINUTES TIME. PT INCREASED TO 16L O2 BY NC WITH OXYGEN SATURATIONS CLIMBING TO 84-85%. PT ENCORAUGED TO SPEND SOME TIME PRONING. PT AGREES. STAND BY ASSIST INTO PRONE POSITION. OXYGN SATURATION CLIMBS TO 91% ON 16L O2 BY NC. PT WEANED BACK TO 12L O2 BY NC WITH OXYGEN SATURATIONS 89-91%. THIS RN IN ROOM TO MONITOR OXYGENATION X10 MINUTES. REMAINS STABLE. PT REMAINS IN PRONE POSITION. BED RAILS UP. CALL LIGHT WITHIN REACH.
--- NOTE | 2021-04-04 07:54 | NUR ---
THIS RN TO ROOM TO CHECK ON PT. PT REMAINS IN PRONE POSITION. OXYGEN SATURATION 93% ON 12L O2 BY NC. PT STATES HE IS OK WITH REMAINING IN PRONE POSITION UNTIL BREAKFAST ARRIVES. NO ADDITIONAL REQUESTS OR COMPLAINTS AT THIS TIME. CALL LIGHT WITHIN REACH.
--- NOTE | 2021-04-04 08:50 | NUR ---
PATIENT TRANSFERRED TO CHAIR TO EAT BREAKFAST. O2 LEVELS DROPPED TO 79 BUT NOW IS BACK TO 85. NURSE ASHTYN IS IN ROOM NOW. PATIENT DOES NOT NEED ANYTHING ELSE AT THIS TIME. CALL LIGHT IN REACH.
--- NOTE | 2021-04-04 08:52 | NUR ---
MORNING ASSESSMENT AND MEDICATION DUE. PT UP TO CHAIR FOR BREAKFAST. OXGYEN SATURATION 84-86% ON 12L O2 BY NC. PT REPORTS 4/10 BODY ACHES (SEE MAR FOR MEDICATION GIVEN). PT DENIES NAUSEA. PT ALERT AND OREINTED, STEADY ON FEET WITH STAND BY ASSIST. LUNG SOUNDS CLEAR TO DEMINISHED. OXYGEN INCREASED TO 16L O2 BY NC WHILE PT IS UP TO CHAIR. OXYGEN SATURATIONS CLIMB TO 89%. PT DEMONSTRATES USE OF I.S. REACHING 2000ML X5. PT REPORTS OCCATIONAL DRY COUGH. PT REPORTS SENSE OF TASTE HAS RETURNED. SENSE OF SMELL "COMES AND GOES" AND APPTITIE IS IMPROVING BUT INCONSISTANT. PT PLACED ON TELEMETRY PULSE OXEMETRY FOR MONITORING AT NURSES STATION. PT REMAINS UP TO CHAIR. EATING BREAKFAST SLOWLY. NO ADDITIONAL REQUESTS OR COMPLAINTS. CALL LIGHT WITHIN REACH.
--- NOTE | 2021-04-04 10:45 | NUR ---
THIS RN TO ROOM TO CHECK ON PT. PT UP TO RESTROOM. O2 SATURTIONS AT 90-93% ON 14L O2 BY NC. PT WEANED TO 12L O2 BY NC. TOLERATING WITH OXGYEN SATRUATIONS %. PT HAS "VERY LARGE" BOWEL MOVEMENT. PT VOIDS CLEAR YELLOW CONCENTRATED URINE IN URINAL. PT BACK TO CHAIR. I.S. USE DEMONSTRATED, PT REACHES 2000ML X4. LOW RESERVE NOTED. PT TAKES 5 MINUTES TO RECOVER ONCE MOVING BACK TO CHAIR, O2 SATARUTIONS DROP TO 84% ON 12L O2 BY NC BUT RECOVER TO 89-91% AFTER 5 MINUTES REST. PT DENIES ADDITIONAL REQUESTS OR COMPLAINTS. CALL LIGHT WITHIN REACH.
--- NOTE | 2021-04-04 11:25 | NUR ---
THIS RN TO ROOM WITH MD FOR ROUNDS. PT VERBALIZES UNDERSTANDING OF PLAN OF CARE AND STATES HIS QUESTIONS HAVE BEEN ANSWERED. PT REPORTS 4/10 BODY ACHES. SEE MAR FOR MEDICATION GIVEN. PT REPORTS FEELING MUCH BETTER SINCE HIS LARGE BOWEL MOVEMENT. LUNCH ORDER PLACED. STAND BY ASSIST BACK TO BED AND INTO PRONING POSITION. PT WEANED TO 8L O2 BY NC WHILE PRONING. O2 SATURATIONS MAINTAINING ABOVE 90%. NO ADDIITONAL REQUESTS OR COMPLAINTS. CALL LIGHT WITHIN REACH.
--- NOTE | 2021-04-04 11:56 | NUR ---
PT CONTINUES IN PRONE POSITION. TOLERATING 8 O2 BY NC WITH OXYGEN SATURATIONS FROM 96-99%. MD UPDATED. CALL LIGHT WITHIN REACH BED RAILS UP.
--- NOTE | 2021-04-04 12:32 | NUR ---
LUNCH ARRIVED. THIS RN TO ROOM TO CHECK ON PT. PT SITTING IN BED WITH HEAD OF BED ELEVATED TO 40 DEGREES, EATING LUNCH. PT DENIES SHORTNESS OF BREATH AND STATES HE HAD A "GOOD NAP." OXYGEN SATURATIONS 89-91% ON 8L O2 BY NC. NO ADDITIONAL REQUESTS OR COMPLAINTS. CALL LIGHT WITHIN REACH.
--- NOTE | 2021-04-04 13:00 | NUR ---
PT FINISHED WITH LUNCH. REMAINS 90-92% ON 8L O2 BY NC. PTS DAUGHTER CAMRYN UPDATED. JOSE STATES HER QUESTIONS HAVE BEEN ANSWERED. NO ADDITIONAL REQUESTS OR COMPLAINTS. CALL LIGHT WITHIN REACH.
--- NOTE | 2021-04-04 13:33 | NUR ---
AFTERNOON ASSESSMENT DUE. PT FINISHED VISITING WITH FAMILY. PT DENIES NAUSEA. REPORTS 3/10 PAIN AND REQUESTS TYELNOL STATING "I'LL JUST REST BETTER IF I HAVE IT." SEE MAR FOR MEDICATION GIVEN. STAND BY ASSIST UP TO RESTROOM. PT MAINTAINS OXYGEN SATURATION 89-91% ON 8 LITERS EVEN WHILE UP. PT VOIDS 200ML CLEAR YELLOW URINE. PT INDEPENDANT BACK TO BED. ASSESSMENT DONE: PT ALERT AND ORIENTED AND CONTINUES ANSWERING QUESTIONS APPROPRIATLY. PT STEADY ON FEET. DENIES SHORTNESS OF BREATH AND STATES HE IS FEELING "A LOT BETTER TODAY." LUNG SOUNDS CLEAR. OCCATIONAL DRY COUGH NOTED. PT DEMONSTRATES USE OF I.S. REACHING 2000ML X4. PT REPORTS "I WAS JUST WORKING ON THAT." HUMIDIFIED HIGH FLOW NASAL CANULA REMAINS IN PLACE AT 8L WITH OXYGEN SATRUATIONS POSITIONAL, WITH ACTIVITY=88-91%, SITTING 90-91%, PRONING=96-98%. STAND BY ASSIST INTO PRONING POSITION. OXGYEN WEANED TO 6L O2 BY NC WHILE PRONING WITH SATURATIONS REMAINING ABOVE 92%. ICE WATER REFILLED. VITAL SIGNS STABLE. CALL LIGHT WITHIN REACH. BED RAILS UP.
--- NOTE | 2021-04-04 14:35 | NUR ---
THIS RN TO ROOM TO CHECK ON PT. PT RESTING ON RIGHT SIDE WITH EYES CLOSED. RESPIRTIONS EVEN AND UNLABORED. OXYGEN SATURATION 94-95% ON 6L O2 BY NC. BED RAILS UP. CALL LIGHT WITHIN REACH. PT ALLOWED TO REST.
--- NOTE | 2021-04-04 15:33 | NUR ---
No change in plan for dc.
--- NOTE | 2021-04-04 15:41 | NUR ---
THIS RN TO ROOM TO CHECK ON PT. PT CONTINUES RESTING ON RIGHT SIDE. RR = 20. OXYGEN SATURATION 94-96% ON 6L O2 BY NC. NO ADDITIONAL NEEDS AT THIS TIME. CALL LIGHT WIHTIN REACH. BED RAILS UP.
--- NOTE | 2021-04-04 17:26 | NUR ---
THIS RN TO ROOM TO CHECK ON PT. PT REMAINS UP TO CHAIR, TOELRATING 6L O2 BY NC WITH OXYGEN SATURATIONS ABOVE 90% EVEN WHILE UP. DINNER DELIVERED. PT DENIES NAUSEA. PT REPORTS BODY ACHES AT 2/10, DENIES NEED FOR MEDICATION AT THIS TIME STATING "MAYBE BEFORE BED." OXGYEN WEANED TO 5L O2 BY NC WITH STATURAIONS MAINTAING ABOVE 90%. ICE WATER REFILLED. NO ADDITIONAL REQUESTS OR COMPLAINTS. PTS DAUGHTER JOSE, UPDATED, AND STATES HER QUESTIONS HAVE BEEN ANSWERED. CALL LIGHT WITHIN REACH.
--- NOTE | 2021-04-04 17:36 | NUR ---
PT HERE FOR COVID RELATED PNEUMONIA. PT INDEPENDANT IN ROOM, STEADY ON FEET. UP TO CHAIR AND PARTICIPATING IN PRONING PROTOCOLS THIS SHIFT. PT TOLERATING REGULAR DIET WITH GOOD APPITITIE. ENSURE MILKSHAKE PROVIDED FOR LUNCH. PT WEANED TO 5L O2 BY NC THIS SHIFT WITH OXYGEN SATURATIONS DEPENDANT ON POSITION: ACTIVITY 89-90%, SITTING 90-91%, PRONING 95-96%. LUNG SOUNDS CLEAR. I.S. USE ENSURED, PT NOW REACHING 2250ML. PT CHEERFUL AND HOPEFUL THIS SHIFT. FAMILY UPDATED. PRN PAIN MEDICATION GIVEN FOR BODY ACHES. PT DENIES NAUSEA. PT VOIDING QUANTITY SUFFICIENT. PT USES CALL LIGHT APPROPRIATLY.
--- NOTE | 2021-04-04 18:16 | NUR ---
THIS RN TO ROOM TO CHECK ON PT. PT REMAINS UP TO CHAIR. OXGYEN SATURATIONS 90-94% ON 5L O2 BY NC. PT REPORTS 2/10 BODY ACHES AND CONTINUES TO DENY NEED FOR MEDICAITON AT THIS TIME. NO ADDITIONAL REQUESTS OR COMPALINTS. CALL LIGHT WITHIN REACH.
--- NOTE | 2021-04-04 19:15 | NUR ---
RECEIVED REPORT, PT IS AWAKE IN THE CHAIR AT THIS TIME. HE DENIES NEEDS, CALL LIGHT IS CLOSE.
--- NOTE | 2021-04-04 22:05 | NUR ---
IN ROOM TO ASSESS PT. EMPTIED URNIAL. PT DENIES SOB AND PAIN AT THIS TIME. HE IS MOTIVATED TO KEEP O2 NEEDS LOW SO HE CAN GO HOME. ASSISTED PT TO PRONE ON STOMACH HE IS ON 5LNC AND NOW AT 96% O2 SAT. PT STATES HE IS DOINE WELL WITH THE I.S. PT DENIES FURTHER NEEDS AT THIS TIME. CALL LIGHT IS CLOSE.
--- NOTE | 2021-04-05 01:19 | NUR ---
PT IS RESTING WITH EYES CLOSED LAYING ON HIS L SIDE. CPOX READS 96% AT THIS TIME ON 5LNC. CALL LIGHT IS CLOSE.
--- NOTE | 2021-04-05 01:25 | NUR ---
[facility] CALLED, TEL READING "79" CHECKED ON PT, UP VOIDING. ONCE IN BED, SATS IMPROVED TO 90'S.
--- NOTE | 2021-04-05 03:05 | NUR ---
PT CALLED, REQUESTED ASSISTANCE WITH PRONING. INDEPENDENTLY LAID ON STOMACH, NEEDED HELP COVERING UP. URNINAL EMPTIED. NO OTHER NEEDS.
--- NOTE | 2021-04-05 04:44 | NUR ---
CHECKED ON PT HE STATES HE IS READY TO GET IN CHAIR SOON AND WOULD LIKE SOME COFFEE. ADVISED PT WILL RETURN WITH COFFEE AFTER WE BREW SOME. PT DENIES FURTHER NEEDS. CPOX READS 91% LAYING ON R SIDE.
--- NOTE | 2021-04-05 05:22 | NUR ---
PT UP IN CHAIR, REQUESTED AND RECEIVED COFFEE. TEL MONITOR READING 90 %
--- NOTE | 2021-04-05 07:30 | NUR ---
Shift report recieved from CONSTANTINO De Guzman, pt resting in bed safely w/ call light in reach, RR even and unlabored.
--- NOTE | 2021-04-05 09:03 | NUR ---
Pt sitting up in chair w/ call light in reach, watching tv. Pt's O2 sats 92% on 5L High Flow, RR even and unlabored. Morning assesment completed and scheduled meds given per provider orders. Pt denies any needs at this time. Pt encouraged to prone, pt agreeable states he will prone in a little while.
--- NOTE | 2021-04-05 11:00 | NUR ---
PT RESTING IN BED IN THE PRONE POSITION, O2 SATS 96% ON 4L HIGH FLOW. CALL LIGHT IN REACH, PT DENIES ANY NEEDS AT THIS TIME.
--- NOTE | 2021-04-05 14:00 | NUR ---
PT RESTING IN BED IN THE PRONE POSITION, PT'S O2 SATS 95-96% ON 4L HIGH FLOW. PT DENIES SOB OR CP.
--- NOTE | 2021-04-05 14:28 | NUR ---
PATIENT NOT READY FOR DISCHARGE. NO CHANGES IN PLAN AT THIS TIME.
--- NOTE | 2021-04-05 16:00 | NUR ---
PT SITTING UP IN CHAIR WATCHING TV, W/ CALL LIGHT IN REACH. PT DENIES ANY NEEDS AT THIS TIME. PT O2 SATS 94% ON 4L HIGH FLOW, DENIES SOB.
--- NOTE | 2021-04-05 17:39 | NUR ---
PT IND IN ROOM, PT HAS PRONED SEVERAL TIMES BETWEEN MEALS. VSS ON 4L HIGH FLOW. PT A+O X4, PT CALLS APPROPRIATELY. SUFFICIENT NUTRITIONAL AND FLUID INTAKE WELL SUFFICIENT URINE OUTPUT.
--- NOTE | 2021-04-05 21:10 | NUR ---
IN TO ASSIST RN WITH TELE SETTING, NO FURTHER NEEDS AT THIS TIME
--- NOTE | 2021-04-05 23:13 | NUR ---
Patient resting in bed, cpox intact, sat level 98% on 4L high flow nc. Patient has no notable distress. Personal supplies and call light within reach.
--- NOTE | 2021-04-06 01:00 | NUR ---
REPORT FROM STEPH MEEKS...PT HAS HAD AN UNREMARKABLE EVENING. MAINTAINING OXYGEN SATURATIONS ON 4L AT 92% AND GREATER.
--- NOTE | 2021-04-06 01:49 | NUR ---
PT OXYGEN SATURATION NOTED TO BE 85%, CHECKED ON PT, HE SAID HE HAD JUST TURNED OVER IN BED, PT ASKED IF HE WOULD PRONE AT THIS TIME. HE AGREED, OXYGEN SATURATION BEGAN TO INCREASE TO 94% ON 4L.
--- NOTE | 2021-04-06 02:47 | NUR ---
CHECKED IN ON PT. HE WAS STANDING AT BEDSIDE WITH HIS OXYGEN OFF SAYING "I HAD A REALLY STRANGE DREAM" PT ASKED TO PUT BACK ON OXYGEN, HE SAID "OH, I USUALLY DONT DO THAT" HE PLACED IS N.C. AND PUT ON HIS FINGER OXIMETRY, PT THEN WENT IN TO BATHROOM TO VOID AND IS NOW SITTNG UP IN RECLINER. ICE REQUESTED AND PROVIDED. RNTO NURSES STATION PT HAD DROPPED TO 88% OXYGEN SATURATION AND THEN QUICKLY RECOVERED TO 94%.
--- NOTE | 2021-04-06 03:37 | NUR ---
96% OXYGEN SATURATION ON 4L AT THIS TIME PER MONITOR
--- NOTE | 2021-04-06 06:00 | NUR ---
PT HAS SLEPT INTERMITTENLY, HE REMAINS ON 4L OXYGEN MAINTAINING 90% AND GREATER AT REST. 94% AND GREATER OXYGEN SATURATION WHLE PRONING AND SIDE LAYING. OTHERWISE UNREMARKABLE SHIFT
--- NOTE | 2021-04-06 08:00 | NUR ---
REPORT RECEIVED FROM NIGHT RN AND PT. CARE RESUMED. PT IS ALERT AND ORIENTED. HE IS SITTING UPRIGHT IN THE CHAIR. ON 4L NC AND O2 SAT. IS 95% DENIES PAIN OR SOB. GOWN CHANGED AND BREAKFAST BROUGHT IN. DISCUSSED POC AND MEDS. PT. LEFT RESTING WITH CALL LIGHT IN REACH.
[2021-04-06] MEDS ORDERED: DEXAMETHASONE6 MG PO (11:17)
--- NOTE | 2021-04-06 12:19 | NUR ---
PT. BROUGHT LUNCH AND UPDATED ON DISCHARGE PROCESS
--- NOTE | 2021-04-06 15:04 | NUR ---
ALL DISCHARGE INSTRUCTIONS REVIEWED WITH PT. AND QUESTIONS ANSWERED. PT.DEMONSTRATED USE OF O2. LEFT WITH ALL BELONGINGS WITH NURSE AND PICKED UP BY .
== END 2021-04-06 14:18 | disposition home or self-care (01) | DRG 177 ==
LOC: ED 12:05 → MS 13:47 → CCU 03-31 13:00 → MS 04-01 10:08 → CCU 04-01 10:15 → MS 04-02 18:45
PROVIDERS: ADMIT Internal Medicine; ATTEND Internal Medicine
PROC: 8E0ZXY6 Isolation (ICD-10-PCS; principal; 2021-03-29)
PROC: XW033E5 Introduction of Remdesivir Anti-infective into Peripheral Vein, Percutaneous Approach, New Technology Group 5 (ICD-10-PCS; 2021-03-29)
PROC: 3E0DX3Z Introduction of Anti-inflammatory into Mouth and Pharynx, External Approach (ICD-10-PCS; 2021-03-29)
DX: U07.1 COVID-19 (principal); J12.82 Pneumonia due to coronavirus disease 2019; J96.01 Acute respiratory failure with hypoxia; E83.42 Hypomagnesemia; E79.0 Hyperuricemia without signs of inflammatory arthritis and tophaceous disease; K75.2 Nonspecific reactive hepatitis
CPT/HCPCS: 71045; 71260; 80048; 80053; 82803; 83735; 84484; 85025; 93005; 93010; 94640; 94761; 94762; 94799; 99285-25; A9270; J1650; J3475; J7030; J7050; Q9967

== ENCOUNTER 2021-07-02 19:39 | Inpatient (IN) | payer BC ==
[~2021-07-02] VITALS: Ht 193 cm; Wt 112.6 kg
[~2021-07-02 19:39] MED LIST changes: +DEXAMETHASONE6 MG PO
--- NOTE | 2021-07-02 23:31 | NUR ---
pt ARRIVES TO [facility] FLOOR VIA STRETCHER. AMBULATORY TO HOSPITAL BED. pt DENIES WEAKNESS, DIZZINESS. GAIT STEADY. IV SITES FLUSHED WNL IVF INFUSING ORDERED. ASSESSMENT COMPLETE. AFEBRILE. SPO2 WNL ON RA. CALL LIGHT IN REACH. ICE WATER PROVIDED. URINAL IN REACH.
--- NOTE | 2021-07-03 01:47 | NUR ---
pt RESTING IN BED, HR 102 ON TELE 2. NO DISTRESS NOTED. LIGHTS OFF IN ROOM.
--- NOTE | 2021-07-03 02:41 | NUR ---
CALL LIGHT ANSWERED. IV PUMP ALARMING DISTAL OCCLUSION. IVF BOLUS COMPLETE, IVF NOW INFUSING ORDERED WNL. pt C/O CHILLS, SHIVERING. TEMPERATURE 97.6 ORALLY. WARM BLANKETS PROVIDED, TEMPERATURE ADJUSTED IN ROOM. pt DENIES TOILETING OR ADDITIONAL NEEDS. CALL LIGHT IN REACH.
--- NOTE | 2021-07-03 02:42 | NUR ---
PATIENT CALLED FOR WARM BLANKET. PROVIDED. PRIMARY RN WAS WITH PATIENT.
--- NOTE | 2021-07-03 05:12 | NUR ---
CALL LIGHT ANSWERED. COFFEE PROVIDED TO pt. VS COMPLETE. pt C/O 5-6 REES, FRONTAL LOBE. PRN TYLENOL ADMINISTERED. ASSESSMENT COMPLETE. HR 113 ON TELE 2. IVF INFUSING WNL. CALL LIGHT IN REACH.
--- NOTE | 2021-07-03 07:30 | NUR ---
this rn received report from nasir montes. pt sitting up to chair and states that he is doing well but still has a bit of a headache and is feeling restless just sitting around
--- NOTE | 2021-07-03 08:29 | NUR ---
PT AWAKE IN ROOM AND WARM CLOTH GIVEN FOR FACE. WHITE BOARD UPDATED. PT UP AND WALKED ONE LONG LAP AROUND NURSES STATION. PT NOW AWAKE IN CHAIR AND EATING BREAKFAST. CALL LIGHT WITHIN REACH. NO FURTHER NEEDS AT THIS TIME.
--- NOTE | 2021-07-03 08:31 | NUR ---
this rn in pts room to give morning meds. pt states that he is still having a headache and the tylenol didn't work this am. pt states it is annoying but is "viral tolerable" pt states that he has no other concerns this am besides possibly hillary ghgiorgio today.
--- NOTE | 2021-07-03 09:55 | NUR ---
this rn in pts room to give pt mag rider. pt states that his headache is still present but has not changed- pt appears to not be grimacing as much enio was previously. pts friend shyanne at chair side at this time. pts concerns have not changed.
--- NOTE | 2021-07-03 12:40 | NUR ---
this rn in pts room due to report pts pump was beeping. pt is chilling and shaking at this time. this rn took pts temp- 100.0- this rn notified - no new orders- 650mg of tylenol given and jaclyn monge provided pt with warm blankets. pt reports needing anything else at this time.
--- NOTE | 2021-07-03 12:52 | NUR ---
this rn called back pts daughter with an update. pts marcella concerned about pts headache due to pt not getting them, waiting on md to see pt.
--- NOTE | 2021-07-03 13:10 | NUR ---
MED REC COMPLETED BY PHARMACY
--- NOTE | 2021-07-03 14:10 | NUR ---
THIS RN IN PTS ROOM TO PROVIDE PT WITH INCENTIVE SPIOMETER. PT STATES THAT HE KNOWS HOW TO USE THIS BECAUSE OF WHEN HE WAS HERE PREVIOUSLY WITH COVID HE NOW USES THE "IS" MULTIPLE TIMES A DAY. PT ABLE TO GET TO THE 2000 LINE. THIS RN WILL RECEHCK PTS TEMP.
--- NOTE | 2021-07-03 14:30 | NUR ---
Spoke with Esteban and states he lives in [place] in a home without steps. States he lives alone. 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 States he is not feeling well and his face is very red. States this is not his norm, thinks he has a fever and rn is in the room and will check. Pt denies needs and plans on dc to home when cleared medically.
--- NOTE | 2021-07-03 15:07 | NUR ---
pt up doing laps at this time.
--- NOTE | 2021-07-03 19:10 | NUR ---
this rn called md about pts shivering during shift change. md to place orders
--- NOTE | 2021-07-03 20:01 | NUR ---
RECEIVED REPORT FROM DAY SHIFT RN. PATIENT IS RESTING IN CHAIR. PATIENTS WHOLE BOY WAS SHAKING. TEMP CHECKED AND IS 99.3. PATIENT GIVEN PRN TYLENOL PER ORDER. PATIENTS DAUGHTER IS NOW PRESENT IN THE ROOM. DAUGHTER EXPRESSED CONERN ABOUT PATIENTS FEVER AND HEADACHE. PATIENTS BLANKET REMOVED. COOL RAG PLACED ON NECK AND FOREHEAD. PATIENT AND DAUGHTER DENY ANY FURHTER NEEDS. CALL LIGHT IN REACH.
--- NOTE | 2021-07-03 20:27 | NUR ---
PATIENTS TEMP REPEATED AND RECORDED. PATIENTS SHAKES HAVE SUBSIDED. PATIENT STATED "I FEEL EXHAUSTED". PATIENT IS RESTING IN RECLINER.
--- NOTE | 2021-07-03 20:32 | NUR ---
PLACED CALL TO MD WITH CONCERNS OF URINE OUTPUT, COLOR AND CONCENTRATED URINE. PATIENTS TEMP ALSO HAS INCREASED. AND PATIENT IS SL. RECEIVED NEW ORDERS, VERIFIED ORDERS USING REPEAT BACK METHOD.
--- NOTE | 2021-07-03 21:07 | NUR ---
REPEATED TEMP AND RECORDED. ICE WATER REFILLED. PATIENT DENIES ANY NEEDS. PATIENT IS RESTING ON COUCH.
--- NOTE | 2021-07-03 22:00 | NUR ---
PATIENTS TEMP IS NOW WNL. PATIENT GIVEN MELATONIN PER ORDER. PATIENTS IV ABX INFUSING PER ORDER. PATIENT DENIES ANY FURTHER NEEDS. CALL LIGHT IN REACH.
--- NOTE | 2021-07-04 00:01 | NUR ---
PATIENT IS RESTING IN RECLINER. IV INFUSING. PATIENT DENIES ANY NEEDS. CALL LIGHT IN REACH.
--- NOTE | 2021-07-04 01:24 | NUR ---
PATIENTS IV INFUSING PER ORDER. PATIENT REPORTS HEADACHE. PATIENT GIVEN PRN TYLENOL PER ORDER. PATIENT DENIES ANY NEEDS. CALL LIGHT IN REACH.
--- NOTE | 2021-07-04 04:14 | NUR ---
PATIENT UP TO THE RESTROOM. PATIENT ABLE TO VOID. PATIENT IS IN RECLINER RESTING. COFFEE PROVIDED PER PATIENT REQUEST. PATIENT DENIES ANY FURTHER NEEDS. CALL LIGHT IN REACH. PATIENT DENIES ANY PAIN OR SOB. PATIENT ONLY REPORTS A MILD HEADACHE AND DENIES THE NEED FOR ANY MEDICATION AT THIS TIME.
--- NOTE | 2021-07-04 06:28 | NUR ---
PATIENTS VITALS TAKEN AND RECORDED. INTAKE AND OUTPUT RECORDED. PATIENT DENIES A HEADACHE AT THIS TIME. SCHEDULED MEDICATION GIVEN PER ORDER. PATIENT DENIES ANY PAIN. PATIENTS DAUGHTER IS PRESENT IN THE ROOM. PATIENT DENIES ANY NEEDS. CALL LIGHT IN REACH.
--- NOTE | 2021-07-04 08:00 | NUR ---
Shift report recieved from CONSTANTINO Henderson, pt resting safely in bed w/ call light in reach and eyes closed, RR even and unlabored on RA
--- NOTE | 2021-07-04 09:33 | NUR ---
PRASHANTH FROM CT CALLED AND WOULD LIKE PT TO HAVE 2 DOSES OF GASTROGRAFIN 15 ML. ONE NOW AND ONE DOSE AT 1030 AND PLAN FOR SCAN AT 1130. ORDER PLACED AND PRIMARY NURSE NOTIFIED.
--- NOTE | 2021-07-04 09:41 | NUR ---
Patient is independent and is resting in the chair.
--- NOTE | 2021-07-04 10:00 | NUR ---
Patient is in chair and was talking with the nurse. Vitals, I&Os are complete. Call light is in reach.
--- NOTE | 2021-07-04 10:00 | NUR ---
Pt sitting up in chair safely w/ call light in reach. Morning assesment complete and scheduled meds given per providers orders. Pt denies any needs at this time, VSS on RA
--- NOTE | 2021-07-04 11:49 | NUR ---
PT SALINE LOCKED AND OFF FLOOR TO SURGERY.
--- NOTE | 2021-07-04 12:00 | NUR ---
Pt currently down at CT
--- NOTE | 2021-07-04 13:36 | NUR ---
Patient's temperature was 99.8 orally. RN will be notified immediately.
--- NOTE | 2021-07-04 13:45 | NUR ---
Spoke with Bob. He states he feels like he is running a fever. No improvement.
--- NOTE | 2021-07-04 13:56 | NUR ---
PT RECLINING IN CHAIR-FAMILY AT HIS SIDE. IT IS OBVIOUS HE WANTS TO REST. GAVE BLESSING AND ENCOURAGEMENT TO PT AND FAMILY PRESENT. WILL FOLLOW
--- NOTE | 2021-07-04 14:00 | NUR ---
Pt sitting up in chair w/ call light in reach. IV fluids and abx infusing per provider order. Pt denies any needs at this time
--- NOTE | 2021-07-04 16:00 | NUR ---
Pt feels warm to the touch temp checked, 100.5, provider notified, motrin given per providers orders. Pt denies any other needs, call light in reach
--- NOTE | 2021-07-04 18:00 | NUR ---
Pt sitting up in chair w/ call light in reach, pt showered independetly IV fluids and abx restarted and infusing per provider orders, no needs at this time
--- NOTE | 2021-07-04 18:00 | NUR ---
Pt is sitting up in chair w/ call light in reach, pt denies any needs at this time
--- NOTE | 2021-07-04 19:00 | NUR ---
SHIFT REPORT RECEIVED FROM DAYSHIFT CONSTANTINO NASH AT BEDSIDE, pt AWAKE AND RESTING IN BED. IV FLUIDS INFUSING DIRECTED, IV SITE WNL. pt RESTING IN CHAIR, IN ROOM. RR EVEN AND UNLABORED, NO DISTRESS NOTED. CALL LIGHT IN REACH.
--- NOTE | 2021-07-04 21:27 | EKG ---
[facility] [address] [facility] [place] [address] Signed Sinus tachycardia Nonspecific T wave abnormality Abnormal ECG When compared with ECG of 29-MAR-2021 13:39, premature ventricular complexes are no longer present Vent. rate has increased BY 41 BPM Questionable change in QRS axis T wave inversion now evident in Lateral leads Confirmed by EVIN CASTILLO DO ([id number]) on 07/04/2021 9:26:51 PM Electronically Signed By: EVIN CASTILLO DO 07/[id number] PATIENT NAME: TIA DALEY ALAN Electrocardiogram DATE OF : 57 PHYSICIAN: EVIN CASTILLO DO REPORT #: [id number] REPORT IS CONFIDENTIAL AND NOT TO BE RELEASED WITHOUT AUTHORIZATION
--- NOTE | 2021-07-04 22:30 | NUR ---
IN TO GET VITALS, PT BACK FROM THE TOILET, UP TO CHAIR, NO FURTHER NEEDS AT THIS TIME
--- NOTE | 2021-07-04 22:45 | NUR ---
ASSESSMENT COMPLETE, EVENING IV ABX GIVEN ALONG WITH PRN MOTRIN AND PRN MELATONIN PER pt REQUEST. pt RESTING IN CHAIR, INDEPENDENT IN ROOM. VSS, pt REPORTS PAIN R/T HEADACHE. pt AFEBRILE, WILL CONTINUE TO MONITOR. IV SITE WNL, FLUSHES EASILY. pt COMPLIANT WITH CARE AND INTERACTIVE WITH STAFF. NO ADDITIONAL NEEDS, CALL LIGHT IN REACH.
--- NOTE | 2021-07-05 01:07 | NUR ---
pt RESTING IN BED, EYES CLOSED. RR EVEN AND UNLABORED. NO DISTRESS NOTED. pt INDEPENDENT IN ROOM, CALL LIGHT IN REACH. IV ABX AND IV FLUIDS INFUSING DIRECTED.
--- NOTE | 2021-07-05 03:00 | NUR ---
pt AWAKE AND RESTING IN BED, IN GOOD SPIRITS AND INTERACTIVE WITH STAFF. pt AFEBRILE, REPORTS TOLERABLE 1-2/10 PAIN R.T HEADACHE. NO ACUTE CHANGES TO ASSESSMENT. BOWEL TONES ACTIVE, pt DENIES NAUSEA. CMS INTACT, pt INDEPENDENT IN ROOM. CALL LIGHT IN REACH.
--- NOTE | 2021-07-05 06:00 | NUR ---
PT VS AND I/O DONE, PT UP TO CHAIR IND. RIGGING HELPER HELPED MOVE EQUIPMENT. PROVIDED WARM BLANKETS. NO FURTHER ASSISTANCE NEEDED AT THIS TIME.
--- NOTE | 2021-07-05 06:51 | NUR ---
scheduled iv abx infusing, iv site wnl. PT denies additional needs. call light in reach.
--- NOTE | 2021-07-05 07:24 | NUR ---
REPORT RECEIVED FROM CONSTANTINO DECKER. PT UP TO CHAIR. PT DENIES PAIN AND NAUSEA. PT REPORTS HE IS "FEELING BETTER OVER ALL." FRESH COFFEE PROVIDED PER PT REQUEST. NO ADDITIONAL REQUESTS OR COMPLAINTS. CALL SUNDEEP VIRGEN.
--- NOTE | 2021-07-05 09:08 | NUR ---
MORNING ASSESSMENT AND MEDICATION DUE. PT REMAINS UP TO CHAIR. FINISHED WITH BREAKFAST, AT 100%. REPORTS A GOOD APPITITE. VITAL SIGNS STABLE. NO FEVER NOTED AT THIS TIME. PT DENIES ANY EPISODES OF CHILLS RECENTLY. IV CONTINUES INFUSING ABX. CONTINIOUS FLUIDS STOPPED. NO S/S OF PHLEBITIS NOTED. LUNG SOUNDS CLEAR. HEART TONES REGULAR. BOWEL TONES ACTIVE. PT DENIES TENDERNESS TO ABDOMEN. PT REPORTS ABDOMEN IS NORMAL IN APPEARANCE STATES "I JUST NEED TO LOOSE SOME WEIGHT, MY PANTS ARE GETTING TOO TIGHT." PT REPORTS HE HAS BEEN WORKING ON HIS I.S. "WHENEVER I CAN." PT TELLING STORIES ABOUT WORK AT HOME. PT DENIES ADDITIONAL REQUESTS OR COMPLAINTS. CALL LIGHT WITHIN REACH.
--- NOTE | 2021-07-05 10:02 | NUR ---
THIS RN TO ROOM TO CHECK ON PT. PT TALKING ON PHONE, REMAINS UP TO CHAIR. PT DENIES REQUESTS OR COMPLAINTS AT THIS TIME. CALL SUNDEEP VIRGEN.
--- NOTE | 2021-07-05 10:25 | NUR ---
Patient is in chair. Vitals, I&Os are complete.
--- NOTE | 2021-07-05 11:05 | NUR ---
LAB CALLED WITH GRAM NEGATIVE JAN VALUE FOUND IN BLOOD CULTURES. UPDATED AND REQUESTS FAXED PAPER REGARDING THIS RESULT INCLUDING THE COLLECTION DATE. LAB CALLED WITH REQUEST, STATES THEY ARE WORKING ON RETRIEVING A COPY WHICH WILL BE FAXED SOON IT IS RECEIVED.
--- NOTE | 2021-07-05 11:16 | NUR ---
THIS RN TO ROOM TO CHECK ON PT. PT TALKING ON PHONE WITH FRIENDS. PT DENIES PAIN AND NAUSEA. IV PUMP ALARMING. INFUSION AND FLUSH COMPLETE. IV FLUSHED AND SALINE LOCKED AT THIS TIME. ALCOHOL CAP APPLIED. PT CONTINUES TALKING ON PHONE. NO ADDITIONAL REQUESTS OR COMPLAINTS. CALL LIGHT WITHIN REACH.
--- NOTE | 2021-07-05 12:07 | NUR ---
FAX RECEIVED FROM LAB REGARDING PTS BLOOD CULTURE RESULTS FROM [facility] SENT ON 07/04. RESULTS GIVEN DIRECTLY TO DR. CASTILLO. NO NEW ORDERS AT THIS TIME.
--- NOTE | 2021-07-05 12:14 | NUR ---
PT ON PHONE, REQUESTED I COME BACK ANOTHER TIME. WILL FOLLOW
--- NOTE | 2021-07-05 12:32 | NUR ---
THIS RN TO ROOM TO CHECK ON PT. PT UP TO CHAIR, FAMILY AT BEDSIDE. PT TALKING ON PHONE. DENIES PAIN, NASUEA, CHILLS. PT DENIES ADDITIONAL REQUESTS OR COMPLAINTS. LUNCH DELIVERED. CALL LIGHT WITHIN REACH.
--- NOTE | 2021-07-05 14:23 | NUR ---
AFTERNOON ASSESSMENT AND MEDICATION DUE. THIS RN TO ROOM. PT RESTING IN BED WITH EYES CLOSED. RESPIRATIONS EVEN AND UNLABORED. PT AWAKENS TO MOVEMENT AND ACTIVITY IN ROOM. VITAL SIGNS TAKEN, NOTED THAT TEMPERATURE IS RISING NOW 99.4, PT DECLINES IBUPROFEN AT THIS TIME STATING HE WOULD LIKE TO WAIT AND SEE "IF I GET A FULL FEVER." VITALS SIGNS OTHERWISE STABLE. PT DENIES PAIN AND NAUSEA. LUNGS SOUNDS CLEAR. IV ASSESSED, WNL, BLOOD RETURN NOTED, IV ABX STARTED (SEE OCT). MILD ABDOMINAL DISTENTION NOTED. PT STATES HIS ABDOMEN APPEARS NORMAL. PTS GIRLFRIEND DISAGREES AND STATES "IT SEEMS A LITTLE SWOLLEN TO ME." PT REPORTS "A TINY LTTLE" PAIN WITH PALPITATION TO LLQ. BOWEL TONES ACTIVE. PT REPORTS PASSING "A LOT" OF GAS. PT REPORTS HE PLANS TO CONTINUE RESTING FOR NOW. NO ADDITIONAL REQUESTS OR COMPLAINTS. CALL LIGHT [employer] REACH. ICE WATER REFILLED.
--- NOTE | 2021-07-05 14:48 | NUR ---
Patient is in bed. Patient's I&Os are complete.
--- NOTE | 2021-07-05 15:06 | NUR ---
THIS RN TO ROOM WITH MD FOR ROUNDS. DR. CASTILLO UPDATED ON PT STATUS, ABDOMINAL DISTENTION, LLQ PAIN. TEMPERATURE REASSESED, NOW 100.5. IBUPROFEN GIVEN. PT RESTING IN BED, TELLING STORIES. PT AND FAMILY UNDERSTANDING OF PLAN OF CARE AND STATE THEIR QUESITONS HAVE BEEN ANSWERED. CALL LIGHT WITHIN REACH. BED RAILS UP.
--- NOTE | 2021-07-05 15:32 | NUR ---
No plan for dc today.
--- NOTE | 2021-07-05 15:49 | NUR ---
PT HERE FOR SEPSIS AND REOCCURANT FEVERS. PT INDEPENDANT IN ROOM, STEADY ON FEET, UP TO CHAIR AND AMBULATING IN HALLWAY. PT DENIES PAIN AND NAUSEA THIS SHIFT. TOELRATING REGULAR DIET WITH GOOD APPITITIE. PT FEBRIAL THIS AFTERNOON WITH TEMPERATURE OF 100.5, PRN IBUPROFEN GIVEN, TYELNOL AVOIDED WHEN POSSIBLE. IV FLUIDS DC'D. PT VOIDING QUANTITY SUFFICIENT. 2ND SET OF BLOOD CUTURES RETURNED, CONTINUE TO BE POSITIVE. REPEAT BLOOD CUTLURES ORDERED FOR THE MORNING. IV ZOSYN CONTINUES. ABDOMEN APPEARS MORE DISTENDED THIS SHIFT AND PT REPORTS OCCATIONAL PAIN IN LLQ WITH PALPITATION. PT USES CALL LIGHT AND MAKES NEEDS KNOWN.
--- NOTE | 2021-07-05 16:25 | NUR ---
THIS RN TO ROOM TO REASSESS TEMPERATURE. TEMPERATURE NOW 100.7. DR. CASTILLO UPDATED. CONSULTED REGARDING WEATHER TO GIVE OR HOLD TYLENOL BASED ON PTS LABS. DR. CASTILLO STATES TO HOLD TYELNOL AT THIS TIME AND "WAIT OUT" THE FEVER. WELL TO PROVIDE ICE PACKS IF NECESSARY TO COOL PT. PT UPDATED ON PLAN OF CARE AND AGREES. ICE PACK PROVIDED. PT UP TO CHAIR READING NEWS PAPER. PT REPORTS "I JUST FEEL TIRED OF ALL THIS." PT DENIES ADDITIONAL REQUESTS OR COMPLAINTS. CALL LIGHT [employer] VIRGEN. FAMILY AT BEDSIDE.
--- NOTE | 2021-07-05 17:27 | NUR ---
THIS RN TO ROOM TO CHECK ON PT. PT UP TO CHAIR. PT TELLING STORIES AND JOKES. PT REPORTS HE HAS BEEN USING HIS ICE PACK ON HIS HEAD (DENIES HEADACHE) STATING "IT JUST FEELS GOOD." PT ALSO STATES HE IS USING HIS I.S. WELL. VITAL SIGNS STABLE. PT REPORTS HIS WILL BE BRINGING HIM DINNER TONIGHT. PT FINISHED 2ND HALF OF SANDWITCH LEFT FROM LUNCH. PT DENIES PAIN AT THIS TIME IN LOWER ABDOMEN STATING "I PASSED GAS TWICE AND IT HELPED A LOT." PT DENIES ADDITIONAL REQUESTS OR COMPLAINTS CALL LIGHT WITHIN REACH. PTS AT BEDSIDE.
--- NOTE | 2021-07-05 18:04 | NUR ---
LOW FIBER ADENDUM ADDED TO PTS DIET ORDER PER DR. CASTILLO VERBAL ORDER.
--- NOTE | 2021-07-05 18:53 | NUR ---
THIS RN TO ROOM TO CHECK ON PT. PT UP TO CHAIR, TALKING WITH FRIENDS ON PHONE. PT DENIES PAIN OR NAUSEA. NO ADDITIONAL REQUESTS OR COMPLAINTS. CALL LIGHT WITHIN REACH.
--- NOTE | 2021-07-05 19:10 | NUR ---
SHIFT REPORT RECEIVED FROM ANISA CHAMORRO AT BEDSIDE. pt AWAKE AND RESTING IN BED, pt SALINE LOCKED BY ANISA MEEKS. TEMP RECHECKED, RESULT OF 98.2 ORALLY. NO NEEDS VERBALIZED, CALL LIGHT IN REACH. RR EVEN AND UNLABORED.
--- NOTE | 2021-07-05 19:55 | NUR ---
pt AMBULATING INDEPENDENTLY IN HALLWAY. NO NEEDS VERBALIZED.
--- NOTE | 2021-07-05 22:11 | NUR ---
ASSESSMENT COMPLETE, VSS. pt DENIES PAIN, BUT REPORTS SOME TENDERNESS IN LLQ. DENIES NAUSEA. pt STATES, "IT'S CRAZY HOW GOOD I FEEL". IV SITE WNL, IV ABX HUNG AND INFUSING DIRECTED. NO ADDITIONAL NEEDS, CALL LIGHT IN REACH.
--- NOTE | 2021-07-06 00:14 | NUR ---
pt RESTING IN BED, EYES CLOSED WITH RR EVEN AND UNLABORED. IV SITE WNL, IV ABX INFUSING DIRECTED. CALL LIGHT IN REACH.
--- NOTE | 2021-07-06 00:30 | NUR ---
IN TO SEE PATIENT AND HE IS RESTING. AGREED EARLIER IN SHIFT TO NOT WAKE PATIENT UP TO ASSCESS NEED FOR TREATMENT AND VIRGIL AGREED TO CALL IN CONCERNED. NO SIGNS OF DISTRESS AT THIS VISIT.
--- NOTE | 2021-07-06 02:49 | NUR ---
ASSESSMENT COMPLETE. pt REPORTS IV WAS LEAKING A LITTLE PER BEATER OUT LEVELING MACHINE. THIS RN IN ROOM TO ASSESS. IV SITE FLUSHES EASILY, FLUSHED WITH 10MLS NS. NO LEAKING OR SIGNS OF INFILTRATION NOTED. pt DENIES PAIN AT IV SITE. WILL CONITNUE TO MONITOR. NO ACUTE CHANGES TO ASSESSMENT, CALL LIGHT IN REACH.
--- NOTE | 2021-07-06 03:49 | NUR ---
pt SALINE LOCKED, IV SITE WNL. NO FURTHER NEEDS. CALL LIGHT IN REACH.
--- NOTE | 2021-07-06 05:58 | NUR ---
scheduled iv abx infusing as directed, iv site wnl and flushes easily. am vss and i&o's complete. fresh water provided. room tidied, lab in room for am lab draws. no further needs, call light in reach.
--- NOTE | 2021-07-06 07:22 | NUR ---
REPORT RECEIVED FROM CONSTANTINO DECKER. PT UP TO RESTROOM INDEPENDANTLY, NO ASSISTANCE NEEDED. PT DENIES PAIN OR NAUSEA. NO ADDITIONAL REQUESTS OR COMPLAINTS. CALL LIGHT WITHIN REACH.
--- NOTE | 2021-07-06 08:00 | NUR ---
patient is in the chair. Johanny MEEKS in the room. warm washcloth offered and taken. call light with in reach. no further neeeds at this time.
--- NOTE | 2021-07-06 08:24 | NUR ---
MORNING ASSESSMENT AND MEDICATION DUE. THIS RN TO ROOM. PT UP TO CHAIR, RESTING WITH EYES CLOSED, RESPIRATIONS EVEN AND UNLABORED. PT AWAKENS TO MOVEMENT IN ROOM. PT DENIES PAIN AND NAUSEA. PT REPORTS INCREASED SENSE OF SMELL, REPORTING HE CAN "SMELL THE IV PUMP." IV ASSESSED, WNL, NO S/S OF PHLEBITIS OR LEAKING NOTED. LUNG SOUNDS CLEAR, HEAR TONES REGULAR. PT REPOTS HIS RIGHT SHOULDER "FEELS LIKE SOMEONE PUNCHED IT, LIKE I SLEPT ON IT WRONG." PT DENIES SUBCLICULAR PAIN POINTING ONLY TO HIS DELTOID MUSCLE. WHEN ASKED TO RATE PAIN HE STATES "OH IT'S NOT EVEN RATABLE, ITS NOTHING." ABDOMEN REMAINS SOFT. MILD DITENTION NOTED, PT REPORTS HE IS UNSURE IF ABDOMEN IS DISTENDED "OR IF'M I'M JUST FAT." BOWEL TONES ACTIVE, BOWEL MOVEMENT NOTED THIS MORNING, PT REPORTS BM WAS NORMAL FOR HIM. PT REPORTS "A LITTLE PAIN" WHEN LLQ DEEP PALPATION. MD TO BEDSIDE TO REVIEW PLAN OF CARE WITH PT. PT VERBALIZES UNDERSTANDING OF PLAN OF CARE AND STATES HIS QUESTIONS HAVE BEEN ANSWERED. NO ADDITIONAL REQUESTS OR COMPLAINTS. CALL LIGHT WITHIN REACH.
--- NOTE | 2021-07-06 09:43 | NUR ---
THIS RN TO ROOM TO CHECK ON PT. PT UP TO CHAIR, FINISHED WITH BREAKFAST. PT DNEIES PAIN, NAUSEA AND CHILLS. NO ADDITIONAL REQUESTS OR COMPLAINTS. CALL LIGHT WITHIN REACH. BED RAILS UP.
--- NOTE | 2021-07-06 11:08 | NUR ---
PUMP ALARMING, INFUSION AND FLUSH COMPELTE. PT REPORTS PAIN WITH IV FLUSH, SMALL AMOUNT OF LEAKING NOTED. IV DC'S PER PROTOCOL. GAUZE AND COBAN APPLIED. PT REQUESTS IV BE LEFT OUT UNTIL AFTER HE CAN SHOWER. SHOWER SUPPLIES SET UP FOR PT. PT REPORTS HE WOULD LIKE TO REST A BIT LONGER AND THE HE WILL SHOWER. NO ADDITIONAL REQUESTS OR COMPLAINTS. CALL LIGHT WITHIN REACH.
--- NOTE | 2021-07-06 12:26 | NUR ---
LUNCH DELIVERED TO PT. PT FINSIHED WITH SHOWER AND JUST GETTING BACK TO HIS CHAIR. PT DENIES PAIN, NAUSEA, AND CHILLS. NEW IV STARETED PER PROTOCOL TO RIGHT FORARM. BRISK BLOOD RETURN NOTED WITH IV START, FLUSHED AND SALINE LOCKED PER PROTOCOL, ALCOHOL CAP APPLIED. PT EATING LUNCH. PTS GIRLFRIEND AT BEDSIDE. CALL LIGHT WITHIN REACH. NO ADDIITONAL REQUESTS OR COMPLAINTS.
--- NOTE | 2021-07-06 14:23 | NUR ---
ABX DUE. THIS RN TO ROOM. PT RESTING IN BED ON LEFT SIDE WITH EYES CLOSED. RESPIRATIONS EVEN AND UNLABORED. IV ASSESSED, WNL, BRISK BLOOD RETURN NOTED. IV ABX STARTED. PT AWAKENS WITH CARES BUT THEN DRIFTS BACK TO SLEEP. NO ADDITIONAL REQUESTS OR COMPLAINTS. CALL LIGHT WITHIN REACH. BED RAILS UP.
--- NOTE | 2021-07-06 15:22 | NUR ---
AFTERNOON ASSESSMENT DUE. PT UP TO CHAIR WATCHING TV. PT DENIES NAUSEA, CHILLS, AND PAIN. PT FEELS MILDY WARM TO TOUCH AND IS MILDLY MORE LETHARGIC THAN EARLIER TODAY. TEMPERATURE REASSESSED AND FOUND TO BE 100.8. IBUPROFEN GIVEN. ICE PACK PROVIDED PER PT REQUEST. WHEN TOLD HE HAS A FEVER PT STATES "REALY! I FEEL FINE. ALTHOUGH I GUESS I DO HAVE A LITTLE HEADACHE." PT RATES HEADACHE AT 2/10. IBUPROFEN GIVEN. LUNG SOUNDS CLEAR. HEART TONES AND RATE WNL. ABDOMEN REMAINS SOFT AND MILDY DISTENDED. PT REPORTS "SORENESS" ONLY WITH DEEP PALPATION TO LLQ. BOWEL TONES ACTIVE. PT REPORTS PASSING GAS. PT PLACES ICE PACK ON HIS HEAD. PT DENIES ADDITIONAL REQUESTS OR COMPLAINTS. CALL LIGHT WITHIN REACH. FRESH ICE WATER PROVIDED.
--- NOTE | 2021-07-06 16:22 | NUR ---
DR. SANTANA UPDATED ON PT STATUS. NO NEW ORDERS AT THIS TIME.
--- NOTE | 2021-07-06 16:34 | NUR ---
THIS RN TO ROOM TO CHECK ON PT. TEMPERATURE REASSESSED, NOW 99.8 ORALLY. PT UP TO CHAIR EATING PUDDING. PT DENIES PAIN AND NAUSEA. PT REQUESTS A NEW ICE PACK, PROVIDED. NO ADDITIONAL REQUESTS OR COMPLAINTS. CALL LIGHT WITHIN REACH.
--- NOTE | 2021-07-06 17:25 | NUR ---
THIS RN TO ROOM TO CHECK ON PT. PT REPORTS HIS WILL BE BRINING HIM DINNER. PT DENEIS PAIN AND NAUSEA. ABDOMEN SOFT TO TOUCH, PT DENIES PAIN WITH PALPATION. NO ADDITONAL DISTNETION NOTED. PT DENIES ADDITIONAL REQUESTS OR COMPALINTS. CALL LIGHT WITHN REACH.
--- NOTE | 2021-07-06 17:40 | NUR ---
PT HERE FOR SEPSIS. PT UP IN ROOM INDEPENDANTLY THIS SHIFT FOR SHOWER AND TO CHAIR. PT TOLERATING REGULAR LOW FIBER DIET WITH GOOD INTAKE. PT DENIES PAIN AND NASUEA THIS SHIFT BUT FOR SORNESS WITH DEEP PAPATATION TO LLQ. PT FEBRAIAL THIS SHIFT WITH A TEMPERATURE OF 100.8, RESOLVED WITH IBUPROFEN AND ICE PACK. ABDOMINAL DISTENTION UNCHANGED. AWAITING RETURN OF 3RD SET OF BLOOD CULTURES. IV ZOSYN GIVEN, IV OTHERWISE SALINE LOCKED. PT VOIDING QUANTITY SUFFICIENT. PT USES CALL LIGTH AND MAKES NEEDS KNOWN.
--- NOTE | 2021-07-06 18:42 | NUR ---
THIS RN TO ROOM TO CHECK ON PT. PT UP TO CHAIR WATCHING MOVIE ON HIS CELL PHONE. PT DENIES PAIN, NAUSEA AND CHILLS. NO ADDITONAL REQUESTS OR COMPLAINTS. CALL LIGHT WITHIN REACH.
--- NOTE | 2021-07-06 19:25 | NUR ---
SHIFT REPORT RECEIVED FROM NAVARROIAPRINCESS CHAMORRO AT BEDSIDE. pt RESTING IN BED WITH EYES CLOSED, RR EVEN AND UNLABORED. NO DISTRESS NOTED. IV SITE WNL, SALINE LOCKED. CALL LIGHT IN REACH.
--- NOTE | 2021-07-06 23:05 | NUR ---
ASSESSMENT COMPLETE, SCHEDULED IV ABX INFUSING DIRECTED. pt DENIES NEED FOR MELATONIN. VSS, pt DENIES PAIN, MINIMAL TENDERNESS NOTED WITH DEEP PALPATATIONIN LLQ, pt DENIES NAUSEA. RESTING IN BED, RR EVEN AND UNLABORED. NO DISTRESS NOTED. CALL LIGHT IN REACH.
--- NOTE | 2021-07-07 00:11 | NUR ---
pt RESTING IN BED WITH EYES CLOSED, RR EVEN AND UNLABORED. NO DISTRESS NOTED. IV ABX INFUSING DIRECTED, IV SITE WNL. CALL LIGHT IN REACH.
--- NOTE | 2021-07-07 01:44 | NUR ---
ASSESSMENT COMPLETE, NO ACUTE CHANGES NOTED. pt AFEBRILE, DENIES PAIN AND NAUSEA. IV ABX INFUSING DIRECTED, SITE WNL. NO NEEDS VERBALIZED, CALL LIGHT IN REACH.
--- NOTE | 2021-07-07 04:06 | NUR ---
pt SALINE LOCKED, IV SITE WNL. NO FURTHER NEEDS. CALL LIGHT IN REACH.
--- NOTE | 2021-07-07 06:30 | NUR ---
SCHEDULED IV ABX INFUSING DIRECTED, IV SITE WNL. NO NEEDS VERBALIZED. CALL LIGHT IN REACH.
--- NOTE | 2021-07-07 08:00 | NUR ---
patient is sitting in his chair waiting for breakfast. patient states he doesn't need anything at this time. call light within reach. no further needs at this time.
--- NOTE | 2021-07-07 08:11 | NUR ---
Scheduled medications administered, assessment complete. Pt sitting up in chair, IV ABX infusing. Pt states no pain or nausea. He states he would like to be discharged today and agrees when asked if he feels he could manage his care at home and know if/when to seek medical attention. Lung sounds clear, HRR. Bowel tones active. ABD firm, pt states normal. CMS intact. A+O. Will continue plan of care.
--- NOTE | 2021-07-07 10:00 | NUR ---
patient sitting in the bed. ate all his breakfast. no further needs at this time. call light with in reach.
--- NOTE | 2021-07-07 11:13 | NUR ---
Rounded on patient who is sitting up in chair watching tv. He states no needs and has no pain/nausea. Water refilled. Call light in reach.
--- NOTE | 2021-07-07 14:30 | NUR ---
patient in the chair talking on the phone. wanting to go home. call light with in reach. no further needs at this time.
--- NOTE | 2021-07-07 14:45 | NUR ---
IV ABX INFUSING WNL. PT UPDATED REGARDING PLAN OF CARE. HE IS AGREEABLE. AT BEDSIDE, ALL QUESTIONS ANSWERED. FAN PROVIDED.
--- NOTE | 2021-07-07 19:00 | NUR ---
SHIFT REPORT RECEIVED FROM ANISA PENNINGTON AT BEDSIDE. pt AWAKE AND RESTING IN CHAIR. ON RA, RR EVEN AND UNLABORED. NO DISTRESS NOTED. INDEPENDENT IN ROOM. CALL LIGHT IN REACH.
--- NOTE | 2021-07-07 20:05 | NUR ---
ASSESSMENT COMPLETE, NO SCHEDULED MEDS AT THIS TIME. VSS, pt ON RA AND INDEPENDENT IN ROOM. DENIES PAIN AND NAUSEA, ICE CREAM PROVIDED PER pt REQUEST. IV SITE WNL, FLUSHES EASILY. NO ADDITIONAL NEEDS, CALL LIGHT IN REACH. pt APPEARS IN GOOD SPIRITS.
--- NOTE | 2021-07-07 22:46 | NUR ---
SCHEDULED IV ABX INFUSING DIRECTED, IV SITE WNL. NO ADDITIONAL NEEDS VERBALIZED. CALL LIGHT IN REACH.
--- NOTE | 2021-07-08 00:53 | NUR ---
pt RESTING IN BED WITH EYES CLOSED, RR EVEN AND UNLABORED. NO DISTRESS NOTED. IV ABX INFUSING DIRECTED. CALL LIGHT IN REACH.
--- NOTE | 2021-07-08 03:15 | NUR ---
IN ROOM TO ROUND ON pt, SCANT REDDNESS NOTED WITH MINIMAL HARDNESS ABOVE CURRENT IV SITE. NO INFILTRATION NOTED WHEN FLUSHED, pt REPORTS MINIMAL DISCOMFORT. IV SITE DC'D. NEW IV IN PLACE TO RIGHT FOREARM, STARTED BY PHARMACISTS BAI[place]. SALINE LOCKED. FRESH COFFEE AND WATER PROVIDED. CALL LIGHT IN REACH.
--- NOTE | 2021-07-08 04:58 | NUR ---
VSS, pt AFEBRILE. NO ADDITIONAL NEEDS VERBALIZED. CALL LIGHT IN REACH.
--- NOTE | 2021-07-08 06:38 | NUR ---
SCHEDULED IV AXB INFUSING DIRECTED, IV SITE WNL AND BRISK BLOOD RETURN NOTED. BREAKFAST ORDER TAKEN AND CALLED DOWN TO KITCHEN. NO ADDITIONAL NEEDS, CALL LIGHT IN REACH.
--- NOTE | 2021-07-08 07:27 | NUR ---
PT AWAKE AND INTERACTIVE AT TIME OF SHIFT EXCHANGE. DENIES DISCOMFORTS OR NEEDS, CALL LIGHT IN REACH.
[2021-07-08] MEDS ORDERED: CIPROFLOXACIN500 MG PO (08:19)
--- NOTE | 2021-07-08 09:32 | NUR ---
PT UP TO THE CHAIR FOR BREAKFAST NO C/O PAIN OR NAUSEA. DR SANTANA IN EARLY TO DISCUSS DC AND INSTRUCTIONS GOING FORWARD. PT VERBALIZES UNDERSTANDING DENIES FURTHER QUESTIONS.
--- NOTE | 2021-07-08 10:46 | NUR ---
PT ON PHONE, REQUESTED I COME BACK, WILL FOLLOW
== END 2021-07-08 09:45 | disposition home or self-care (01) | DRG 871 ==
LOC: ED 19:39 → MS 19:40
PROVIDERS: ADMIT Student in an Organized Health Care Education/Training Program; ATTEND Student in an Organized Health Care Education/Training Program
DX: A41.51 Sepsis due to Escherichia coli [E. coli] (principal); K72.00 Acute and subacute hepatic failure without coma; N17.9 Acute kidney failure, unspecified; K57.92 Diverticulitis of intestine, part unspecified, without perforation or abscess without bleeding; Z20.822 Contact with and (suspected) exposure to COVID-19; R65.20 Severe sepsis without septic shock; K76.0 Fatty (change of) liver, not elsewhere classified; Z87.891 Personal history of nicotine dependence; Z86.16 Personal history of COVID-19
CPT/HCPCS: 71045; 74177; 80053; 81001; 83605; 83735; 84484; 85007; 85025; 85651; 87040; 87077; 87186; 93005; 93010; 96365; 96366; 96367; 96375; 96376; 99285-25; A9270; C9803; G0378; J1885; J2543; J3475; J7030; J7121; Q9967; U0003

== ENCOUNTER 2021-12-02 05:43 | Day surgery (SDC) | payer BC ==
[~2021-12-02] VITALS: Ht 190.5 cm; Wt 118.1 kg
[~2021-12-02 05:43] MED LIST changes: +CIPROFLOXACIN500 MG PO
--- NOTE | 2021-12-02 08:13 | NUR ---
12/02/21 0813 Anitra Vora 0809- PT ARRIVES TO PACU REACTIVE TO STIMULI. PT FALLS INSTANTLY BACK TO SLEEP WHEN NOT BEING STIMULATED. RESP EVEN AND UNLABORED. OXYGEN SAT MID 90'S ON 2L VIA NC.
--- NOTE | 2021-12-11 12:26 | OR ---
[facility] [address], [place] [address] Signed DATE OF OPERATION: 12/02/2021 SURGEON: Krystal Espinoza MD PREOPERATIVE DIAGNOSIS: History of tubular adenoma 2014. POSTOPERATIVE DIAGNOSIS: Extensive diverticulosis of colon. No evidence of recurrent polyp. PROCEDURE: Total colonoscopy to the cecum. ANESTHESIA: Intravenous sedation; fentanyl 150 mcg and Versed 7 mg. INDICATION: This 66-year-old white man is a patient of Dr. Galindo and underwent colonoscopy in 2014 at which time he was found to have a recurrent polyp at 90 cm, found to be a tubular adenoma. He had mild hyperplasia of the ileocecal valve as well. He had undergone colonoscopy with resection of the polyp in 2011 and a tattoo joseph was in place. He currently has no symptoms of bleeding, diarrhea or constipation and no family history of colon cancer. He is admitted to undergo surveillance colonoscopy. He understands the risk of bleeding, infection, and perforation. FINDINGS: The prep was good. Complete colonoscopy was undertaken of the cecum without question. He had extensive diverticular changes of the sigmoid and left colon and scattered diverticula more proximally. There was no evidence of recurrent polyp and no colitis or other similar problem. DESCRIPTION OF PROCEDURE: The patient was brought to the endoscopy suite and placed in the lateral decubitus position, given intravenous sedation to the point of slurred speech and nystagmus. Digital rectal examination was normal. An Olympus video colonoscope was passed in the rectum and manipulated throughout the colon noting numerous diverticula of the sigmoid and left colon. The scope was ultimately advanced to the cecum. Ileocecal valve and appendiceal orifice were normal. Scope was withdrawn from that point. Examination throughout showed no sign of Electronically Signed By: KRYSTAL ESPINOZA MD 12/11/21 1226 PATIENT NAME: TIA DALEY OPERATIVE REPORT DATE OF : 57 REPORT #: [id number] PHYSICIAN: KRYSTAL ESPINOZA MD PCP: EBONY GALINDO MD REPORT IS CONFIDENTIAL AND NOT TO BE RELEASED WITHOUT AUTHORIZATION [facility] [address], [place] [address] Signed abnormality other than the diverticulosis. Retroflexed view was normal as well. The scope was removed and the patient was taken to the recovery room in good condition. CONCLUDING DIAGNOSIS: Diverticulosis. PLAN: Recommend repeat colonoscopy in 10 years based on prior history of polyp. Recommend high-fiber diet. He will return to the ongoing care of Dr. Galindo. MD CINDI Tran/THAD /[id number] cc: Ebony Galindo MD Copies: EBONY GALINDO MD ~ Electronically Signed By: KRYSTAL ESPINOZA MD 12/11/21 1226 PATIENT NAME: TIA DALEY OPERATIVE REPORT DATE OF : 57 REPORT #: [id number] PHYSICIAN: KRYSTAL ESPINOZA MD PCP: EBONY GALINDO MD REPORT IS CONFIDENTIAL AND NOT TO BE RELEASED WITHOUT AUTHORIZATION
== END 2021-12-02 08:54 | disposition home or self-care (01) ==
LOC: DS 05:43 → OPS 05:43 → DS 07:30 → OPS 07:30
PROVIDERS: ATTEND Surgery
PROC: 0DJD8ZZ Inspection of Lower Intestinal Tract, Via Natural or Artificial Opening Endoscopic (ICD-10-PCS; principal; 2021-12-02 07:30)
DX: Z12.11 Encounter for screening for malignant neoplasm of colon (principal); K57.30 Diverticulosis of large intestine without perforation or abscess without bleeding; M10.9 Gout, unspecified; Z86.010 Personal history of colon polyps; Z20.822 Contact with and (suspected) exposure to COVID-19; Z86.16 Personal history of COVID-19
CPT/HCPCS: 99153; G0500; J2250; J3010; J7121; U0003

== ENCOUNTER 2024-08-02 18:21 | Emergency (ER) | payer BC ==
[~2024-08-02] VITALS: Ht 190.5 cm; Wt 108.4 kg
[2024-08-02] MEDS ORDERED: ASPIRIN 81 MG CHEW PO ONE (18:30)
[2024-08-02] MEDS ORDERED: NITROGLYCERIN 0.4 MG SUBL SL PRN (18:30)
[2024-08-02 18:39] LABS: BASOPHILS 0.6 % (0-2); EOSINOPHILS 1.5 % (0-6); HEMOGLOBIN 15.8 g/dL (12.0-18.0); LYMPHOCYTES 41.5 % (24-44); MCH 30.5 (27-36); MCHC 34.3 g/dl (30-36); MCV 88.9 fl (81-99); MONOCYTES 6.3 % (0-12); NEUTROPHILS 50.1 % (39-80); PLATELET COUNT 200 K/uL (140-440); RBC 5.17 M/ul (4.3-5.7); RDW 12.9 (10.5-15.0)
[2024-08-02 18:59] LABS: ALBUMIN 4.4 g/dL (3.4-5.0); ALBUMIN/GLOBULIN RATIO 1.26 (1.1-2.4); ANION GAP 13.5 (7-21); BILIRUBIN, TOTAL 0.7 ng/dL (0.2-1.0); BUN/CREATININE RATIO 21.34 (6.0-28.6); CALCIUM 9.8 mg/dL (8.5-10.1); CREATININE, SERUM 0.89 mg/dL (0.70-1.30); MAGNESIUM 1.7 mg/dL (1.8-2.4); POTASSIUM 3.5 mmol/L (3.5-5.1); PROTEIN, TOTAL 7.9 g/dL (6.4-8.2)
[2024-08-02] MEDS ORDERED: MAGNESIUM OXIDE 400 MG TABLET PO ONE (19:15)
[2024-08-02] MEDS ORDERED: CYCLOBENZAPRINE10 MG PO (20:01)
[2024-08-02 20:10] VITALS: BP 155/84
[2024-08-02] MEDS ORDERED: CYCLOBENZAPRINE HCL 10 MG HOME.PACK PO ONE (20:15)
--- NOTE | 2024-08-03 22:39 | EKG ---
[facility] [address] [place] [address] Signed Sinus rhythm with 1st degree AV block with frequent premature ventricular complexes Minimal voltage criteria for LVH, may be normal variant ( [place] product ) Anterior infarct , age undetermined Abnormal ECG When compared with ECG of 02-JUL-2021 19:47, premature ventricular complexes are now present Anterior infarct is now present T wave inversion less evident in Lateral leads Confirmed by Adrienne Lundy MD () on 08/03/2024 10:39:48 PM Electronically Signed By: ADRIENNE LUNDY MD 08/03/24 2239 PATIENT NAME: TIA DALEY Electrocardiogram DATE OF : 57 PHYSICIAN: ADRIENNE LUNDY MD REPORT #: [id number] REPORT IS CONFIDENTIAL AND NOT TO BE RELEASED WITHOUT AUTHORIZATION
== END 2024-08-02 20:10 | disposition home or self-care (01) ==
LOC: ED 18:21
PROVIDERS: Emergency Medicine
DX: R07.89 Other chest pain (principal); R00.2 Palpitations; M10.9 Gout, unspecified; Z79.899 Other long term (current) drug therapy
CPT/HCPCS: 36415; 71045; 80053; 83735; 84484; 85025; 85379; 93005; 93010; 99285-25; A9270